=== PATIENT | male | born 1965 | race Caucasian/White ===

== ENCOUNTER → 2017-03-09 | Outpatient (CLI) | payer BC ==
[2017-03-03 15:43] VITALS: BMI 25.1
[2017-03-09 10:59] VITALS: BP 121/78; PULSE 87; RESP 16; TEMP 98.3
--- NOTE | 2017-03-09 11:23 | P.CONS ---
History of Present Illness - Reason for Consult Consult date: 03/09/17 - Chief Complaint Back pain - History of Present Illness This is a 51-year-old male with long-standing history of lower back pain with worsening of this pain over the last 5 years. The pain goes across the lower back and down the right leg to the right knee. The patient also has pain in his right knee since he injured it a few years ago and had surgery for it. The pain gets worse by standing and by doing any prolonged activities however it does not wake the patient up at night. The patient also denies any weight loss or any bowel or bladder dysfunction. Also there is no numbness or tingling in the lower extremities. The lumbar spine MRI showed severe widespread degenerative disc disease in the lumbar spine with a transitional segment at the L5-S1 level with lumbarization of the S1 vertebra and spondylolisthesis of L5 on S1. 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 He uses Percocet once or twice a week as he states to help with this pain. He does not think that physical therapy would help him because his work is physically demanding already. Past Medical History Past Medical History: COPD, Osteoarthritis (OA), Skin Disorder, Thyroid Disorder Additional Past Medical History / Comment(s): fx ribs , fx toe left foot currently-recent fall, psoriasis, History of Any Multi-Drug Resistant Organisms: None Reported Additional Past Surgical History / Comment(s): Nail removed from rt knee, Past Anesthesia/Blood Transfusion Reactions: No Reported Reaction Past Psychological History: Anxiety, Depression Smoking Status: Current every day smoker Past Alcohol Use History: Occasional Additional Past Alcohol Use History / Comment(s): smokes up to 2 PPD, for 25 yrs Past Drug Use History: None Reported - Past Family History Brother(s) Family Medical History: Cancer Medications and Allergies Home Medications Medication Instructions Recorded Confirmed Type ALPRAZolam [Xanax] 2 mg PO HS PRN 03/03/17 03/09/17 History Escitalopram [Lexapro] 10 mg PO DAILY 03/03/17 03/09/17 History Ibuprofen 400 mg PO Q8HR PRN 03/03/17 03/09/17 History Levothyroxine Sodium [Synthroid] 125 mcg PO DAILY 03/03/17 03/09/17 History oxyCODONE-APAP 10-325MG [Percocet 1 tab PO Q6HR PRN 03/03/17 03/09/17 History 10-325 mg] Allergies Allergy/AdvReac Type Severity Reaction Status Date / Time No Known Allergies Allergy Verified 03/09/17 10:42 Physical Exam Vitals: Vital Signs Temp Pulse Resp BP 03/09/17 10:45 98.3 F 87 16 121/78 Patient is alert oriented 3 in no apparent distress. Neuro exam of the lower extremities showed normal muscle strength and normal knee reflexes bilaterally absent ankle reflexes bilaterally. Straight leg raising test negative bilaterally. He has tenderness in the lumbar paravertebral area bilaterally. He has no sacroiliac joint tenderness. Facet loading test is positive on both sides. Normal range of motion of the lumbar spine with more pain with flexion than with extension. Assessment and Plan Plan: This is a 51-year-old male with lumbar degenerative disc disease and mostly axial lower back pain with occasional radiation to the right knee. The patient denies any paresthesia in the lower extremities. He has no lateralizing neurological symptoms or signs. Patient can benefit from getting lumbar medial branch block under fluoroscopic guidance and if it does work for him then we can plan on doing radiofrequency ablation in the near future. The patient is slightly hesitant about getting any injections done on his back pain is going to think about this procedure and check with his primary care physician before he gets back to us.
== END ==
LOC: PNWHC3 10:33
PROVIDERS: ATTEND Anesthesiology
DX: M51.36 Other intervertebral disc degeneration, lumbar region (principal); J44.9 Chronic obstructive pulmonary disease, unspecified; M25.50 Pain in unspecified joint; E07.9 Disorder of thyroid, unspecified; F41.9 Anxiety disorder, unspecified; F32.9 Major depressive disorder, single episode, unspecified; F17.200 Nicotine dependence, unspecified, uncomplicated; Z79.899 Other long term (current) drug therapy
CPT/HCPCS: 99211

== ENCOUNTER 2017-04-02 07:32 | Day surgery (SDC) | payer BC ==
[2017-03-31 15:27] VITALS: BMI 25.1
[~2017-04-02 07:32] MED LIST: LACTATED RINGERS 1,000 ML IV SCH
[2017-04-02 07:49] VITALS: TEMP 98.2
[2017-04-02] MEDS ORDERED: LIDOCAINE 1% 20 ML VIAL (10MG/ML) FOR IV START INTRADERMA ONE (07:55)
[2017-04-02] MEDS ORDERED: IV FLUID CONTINUATION 1,000 ML IV ONE (08:48)
--- NOTE | 2017-04-02 08:53 | P.PCN ---
Date of Procedure: 04/02/17 Surgeon: Josiah Wise Pathology: none sent Condition: stable Disposition: PACU Description of Procedure: PREOPERATIVE DIAGNOSIS: L3-L4, L4-L5, and L5-S1 spondylosis without myelopathy and facet arthropathy. POSTOPERATIVE DIAGNOSIS: L3-L4, L4-L5, and L5-S1 spondylosis without myelopathy and facet arthropathy. PROCEDURE DESCRIPTION: Patient presents for L3-L4, L4-L5 and L5-S1 diagnostic medial branch blocks under fluoroscopic guidance. The procedure is performed using fluoroscopic guidance during needle placement to assure proper position and maximize safety. ANESTHESIA: Local with 1% lidocaine; conscious sedation EBL: Minimal PROCEDURE INDICATION: Patient with lumbar facet arthropathy signs and symptoms, here for diagnostic medial branch block after failing conservative treatment. Pt does not take any blood thinning medications. MBB #1 at this visit. PROCEDURE DESCRIPTION: The patient was seen and identified in the preoperative area. Risks, benefits, complications, and alternatives were discussed with the patient (including but not limited to incomplete pain relief, bleeding, infection, nerve damage, and allergies to medications), the patient agreed to proceed with the procedure and signed the consent after all questions were answered. Patient was taken to the OR and time out was completed to verify proper patient, position, laterality of pain, and allergies. Pt was placed in the prone position and a pillow was placed under the abdomen to reduce lumbar lordosis. The lumbosacral area was prepped and draped in the usual sterile fashion. Using oblique fluoroscopy, the eye of the "Joaquin dog" of right L4 vertebral body, which corresponds to the path of the medial branch originating from the level above, which is L3 in this case, was identified. Subsequently, a 22-gauge 3.5-inch spinal needle was inserted under fluoroscopic guidance toward the eye of the "Joaquin dog" of the right L4 vertebral body, corresponding to the junction of the superior articular process and the transverse process of the pedicle of the same level. After needle tip confirmation on lateral view and after negative aspiration for CSF and blood and without paresthesias, 1 mL of a 6 ml solution of 0.5% preservative-free bupivacaine and 40 mg Kenalog was injected. Subsequently the needle was withdrawn intact and the same procedure was repeated for the right L4, right L5, left L3, left L4, and left L5 medial branches which together with right L3 medial branch correspond to the sensory innervation of the bilateral L3-L4, L4-L5, and L5-S1 facet joints. Needle was withdrawn intact after each injection. At the end of the procedure, the skin was cleansed and bandages were applied. COMPLICATIONS: None. DISPOSITION/PLAN: The patient taken to the recovery area after the procedure in a stable condition for observation. Patient was reexamined prior to discharge and there were no issues and hea larea. Patient was discharged home, accompanied by an adult, after meeting discharged criteria. Discharge instructions were give to the patient by the staff. Patient was specifically instructed not to drive today and to rest for the rest of the day. Patient will follow up for second diagnostic LMBB in 4-6 weeks.
[2017-04-02 08:54] VITALS: PULSE 60
[2017-04-02 08:57] VITALS: BP 133/86; RESP 16
--- NOTE | 2017-04-02 09:01 | FL ---
EXAMINATION TYPE: FL guided pain mgmt statistic DATE OF EXAM: 04/02/2017 CLINICAL HISTORY: Low back pain. TECHNIQUE: Fluoroscopy. COMPARISON: None. FINDINGS: Fluoroscopic guidance was provided during pain relief procedure performed by Dr. Wise . A total of 23 seconds of fluoroscopic time was utilized during the procedure and 6 spot images are ac quired. Images acquired shows needle localization at multiple levels in the lower lumbar spine. IMPRESSION: As Above.
== END 2017-04-02 09:16 | disposition home or self-care (01) ==
LOC: ORPAIN 07:32
PROVIDERS: ATTEND Anesthesiology
DX: M47.816 Spondylosis without myelopathy or radiculopathy, lumbar region (principal); M47.817 Spondylosis without myelopathy or radiculopathy, lumbosacral region; M46.96 Unspecified inflammatory spondylopathy, lumbar region; M46.97 Unspecified inflammatory spondylopathy, lumbosacral region; J44.9 Chronic obstructive pulmonary disease, unspecified; M19.90 Unspecified osteoarthritis, unspecified site; E07.9 Disorder of thyroid, unspecified; F41.9 Anxiety disorder, unspecified; F32.9 Major depressive disorder, single episode, unspecified; Z87.891 Personal history of nicotine dependence; Z79.899 Other long term (current) drug therapy
CPT/HCPCS: 64493; 64494; 64495; 99152; J2250; J3301

== ENCOUNTER 2017-05-27 08:40 | Day surgery (SDC) | payer BC ==
[2017-05-25 09:22] VITALS: BMI 25.1
[2017-05-27 09:16] VITALS: RESP 16; TEMP 98
--- NOTE | 2017-05-27 10:24 | P.PCN ---
Date of Procedure: 05/27/17 Procedure(s) Performed: PREOPERATIVE DIAGNOSIS: 1-Lumbar Spondylosis with Facet Arthropathy without myelopathy. 2- Lumber degenerative disc disease. POSTOPERATIVE DIAGNOSIS: 1- Lumbar Spondylosis with Facet Arthropathy without myelopathy. 2- Lumber degenerative disc disease. PROCEDURES : Left Radiofrequency thermocoagulation, L3-L4, L4-L5, and L5-S1 medial branch, with fluoroscopic guidance ANESTHESIA: IV sedation with versed 2 mg and fentaneyl 100 mcg and local infiltration with lidocaine 1% 6 ml EBL: Minimal PROCEDURE INDICATION: The patient with low back pain secondary to lumbar facet arthropathy who had more than 50% relief of her pain with previous diagnostic lumbar medial branch block with bupivacaine. PROCEDURE DESCRIPTION / TECHNIQUE: The patient was seen and identified in the preoperative area. Risks, benefits, complications, including but not limited to risk of infection ,bleeding , allergic reactions to the medications and no complete pain releife , and alternatives were discussed with the patient, the patient agreed to proceed with the procedure and signed the consent. IV was started. Vital signs remained stable throughout the procedure. Patient was taken to the OR and time out was completed. The patient was placed in the prone position on the procedure table. The lumber area was prepped and draped in the usual sterile fashion. . Vital signs were closely monitored during the procedure .IV sedation was used during the procedure to decrease patients anxiety. Using AP and then oblique fluoroscopy, the ``eye of the Joaquin dog corresponding to the connection between the superior and transverse articular processes of left L3, L4, and L5 were identified, marked, and localized with 1 % lidocaine. Subsequently, a [id number] radiofrequency cannula with a 10- mm active tip was advanced guided by fluoroscopy to each of the ``eyes of the Joaquin dog at left L3, L4, and L5. Each site then underwent sensory testing at 50 Hz and 0 to 1 volt and motor testing at 2.5 Hz and 0 to 3 volt with local stimulation, but no radicular symptoms down the legs. Thereafter the left L3-4, L4-5, and L5-S1 sites underwent radiofrequency thermocoagulation at 80 degrees celsius for 90 seconds after injecting 0.5 ml of PF lidocaine 1%. then After the thermocoagulation done , 1 ml of the block solution containing Kenalog 40 mg and 3 ml of marain 0.5% was injected at the left L3-4 , L4- 5 , and L5-S1, levels after negative aspiration of CSF and blood and with no paresthesias. Cannulas were retracted while injecting lidocaine 1% until the needle is out. At the end of the procedure, the skin was cleansed and bandages were applied. COMPLICATIONS: No acute complications. DISPOSITION / PLANS: The patient was placed in a supine position and transferred to the recovery area in a stable condition for observation and was discharged from the recovery room after meeting discharge criteria. Home discharge instructions given to the patient by the staff. The patient was reexamined prior to discharge. The patient will schedule a follow up in the clinic in 2-4 weeks.
--- NOTE | 2017-05-27 10:38 | FL ---
EXAMINATION TYPE: FL guided pain mgmt statistic DATE OF EXAM: 05/27/2017 COMPARISON: NONE HISTORY: Back pain TECHNIQUE: Fluoroscopy. FINDINGS/IMPRESSION: Fluoroscopic guidance was provided during procedure performed by Dr. Tang. A total of 5 seconds of fluoroscopic time was utilized during the procedure and 4 spot images was ac quired demonstrating intraoperative images marking multiple lumbar vertebral levels.
[2017-05-27 10:53] VITALS: BP 119/82; PULSE 67
[2017-05-27] MEDS ORDERED: IV FLUID CONTINUATION 1,000 ML IV ONE (10:55)
== END 2017-05-27 11:06 | disposition home or self-care (01) ==
LOC: ORPAIN 08:40
PROVIDERS: ATTEND Specialist
DX: M51.36 Other intervertebral disc degeneration, lumbar region (principal); M47.816 Spondylosis without myelopathy or radiculopathy, lumbar region; M46.96 Unspecified inflammatory spondylopathy, lumbar region; E03.9 Hypothyroidism, unspecified
CPT/HCPCS: 64635; 64636 ×2; J2250; J3301; J3010; 99152; 99153

== ENCOUNTER 2017-08-03 06:28 | Day surgery (SDC) | payer OTHER ==
[2017-07-28 13:35] VITALS: BMI 25.1
[2017-08-03 06:43] VITALS: RESP 18; TEMP 98.4
[2017-08-03] MEDS ORDERED: LIDOCAINE 1% 20 ML VIAL (10MG/ML) FOR IV START INTRADERMA ONE (06:53)
--- NOTE | 2017-08-03 07:25 | P.PCN ---
Date of Procedure: 08/03/17 Procedure(s) Performed: Preoperative diagnoses= 1-lumbar spondylosis and lumbar facet arthropathy. 2- bilateral sacroiliac joint dysfunction. 3-lumbar degenerative disc disease Postoperative diagnoses= same as preoperative diagnosis. Procedure= Bilateral sacroiliac joint steroid injection under fluoroscopic guidance. Anesthesia= moderate sedation with Versed 2 mg and fentanyl 50 micrograms and local infiltration with lidocaine 1% 4 ml Estimated blood loss=minimal. Procedure indication= the patient had a history of severe chronic low back pain , diagnosed with sacroiliac joint dysfunctions, and lumbar sacral facet arthropathy unresponsive to conservative treatment. Procedure description= the patient was seen and identified in the preoperative holding area, risks and benefits and alternative of the procedure and possible complications discussed with the patient, and he agreed with the preceding, patient signed the consent, an IV was started, and vital signs were monitored and were stable throughout the procedure, patient was placed in the prone position or table and the lumbosacral area was prepped and draped with a sterile fashion, vital signs were closely monitored during the procedure, the fluoroscopy camera was placed in the contralateral oblique view on the right sacroiliac joint and the lower part of the joint was identified, local infiltration of the skin and subcutaneous tissue with lidocaine 1% 2 mL then a 22-gauge Quincke-type spinal needle advanced slowly under fluoroscopy and placed in the posterior and inferior border of the right sacroiliac joint, placement confirmed with AP and lateral view, and after appropriate needle placement confirmed and after negative aspiration for heme and CSF and there was no paresthesia during the injection, 3 ml of Marcaine 0.5% and 40 mg of Kenalog injected after negative aspiration, the needle removed, and the entire same procedure was repeated for the left sacroiliac joint Patient tolerated the procedure well without any complication, The patient returned to supine position after the back was cleaned and a Band- Aid applied, the patient transported to recovery room in stable condition and he was monitored for 30 minutes before he was discharged home and then patient was reexamined before going home and patient was discharged in stable condition and patient will follow up with the pain clinic in a few weeks
[2017-08-03] MEDS ORDERED: IV FLUID CONTINUATION 1,000 ML IV ONE (07:30)
[2017-08-03 07:48] VITALS: BP 122/72; PULSE 63
--- NOTE | 2017-08-03 08:39 | FL ---
EXAMINATION TYPE: FL guided pain mgmt statistic DATE OF EXAM: 08/03/2017 FLUOROSCOPY Fluoroscopy time of 7 seconds was used during bilateral SI joint injections. 2 image/s document/s th e procedure.
== END 2017-08-03 08:09 | disposition home or self-care (01) ==
LOC: ORPAIN 06:28
PROVIDERS: ATTEND Specialist
DX: G89.29 Other chronic pain (principal); M53.3 Sacrococcygeal disorders, not elsewhere classified; M47.816 Spondylosis without myelopathy or radiculopathy, lumbar region; M51.36 Other intervertebral disc degeneration, lumbar region; F41.9 Anxiety disorder, unspecified; E03.9 Hypothyroidism, unspecified; Z72.0 Tobacco use
CPT/HCPCS: J2250; J3301; J3010; G0260

== ENCOUNTER 2017-08-18 06:29 | Day surgery (SDC) | payer OTHER ==
[2017-08-11 12:06] VITALS: BMI 24.3
[2017-08-18] MEDS ORDERED: LACTATED RINGERS 1,000 ML IV ONE (07:08)
[2017-08-18 07:09] VITALS: TEMP 98.2
[2017-08-18] MEDS ORDERED: LACTATED RINGERS 1,000 ML IV SCH (07:30)
--- NOTE | 2017-08-18 07:31 | P.PCN ---
Date of Procedure: 08/18/17 Surgeon: Josiah Wise Pathology: none sent Condition: stable Disposition: PACU Description of Procedure: PREOPERATIVE DIAGNOSIS: 1-Bilateral sacroiliitis. 2 Lumbar DDD POSTOPERATIVE DIAGNOSIS:. 1-Bilateral sacroiliitis. 2 Lumbar DDD PROCEDURES: Bilateral Sacroiliac joint steroid injection with fluoroscopic guidance ANESTHESIA: Local with 1% lidocaine; conscious sedation EBL: Minimal. PROCEDURE INDICATIONS: This patient with a history of low back pain secondary to sacroiliitis and lumbar DDD unresponsive to conservative management. No use of blood thinners. Two weeks' relief from first procedure. PROCEDURE DESCRIPTION: The patient was seen and identified in the preoperative area. Risks, benefits, complications, and alternatives were discussed with the patient (including but not limited to incomplete pain relief, bleeding, infection, nerve damage, and allergies to medications), the patient agreed to proceed with the procedure and signed the consent after all questions were answered. Patient was taken to the OR and time out was completed to verify proper patient , position, laterality of pain, and allergies. Pt was placed in the prone position and a pillow was placed under the abdomen to reduce lumbar lordosis. The lumbosacral area was prepped and draped in the usual sterile fashion. Critical pause was taken. Vital signs were closely monitored during the procedure. The fluoroscopic camera was placed in contralateral oblique view and right sacroiliiac joint lower pole was identified. After local infiltration with 1% lidocaine 2 ml, Subsequently, a 22-gauge 3.5 inch spinal needle was introduced into the posteroinferior aspect of the right sacroiliac joint under direct fluoroscopic visualization. Subsequently, 3 ml of a solution of a total of 6 ml solution containing total 5 mL of 0.5% preservative-free bupivicaine mixed with 40 mg of Kenalog was injected after negative aspiration for CSF, blood, and air and negative for paresthesia. The entire procedure was repeated on the left side as above. Needle was withdrawn intact. Skin was cleansed, and bandages were applied. COMPLICATIONS: None. COMMENTS: DISPOSITION / PLANS: The patient was placed in a supine position and transferred to the recovery area in a stable condition for observation and was discharged from the recovery room after meeting discharge criteria. Home discharge instructions given to the patient by the staff. The patient was reexamined prior to discharge. The patient will schedule a follow up in clinic in 2-4 weeks.
[2017-08-18 07:39] VITALS: RESP 20
--- NOTE | 2017-08-18 07:40 | FL ---
EXAMINATION TYPE: FL guided pain mgmt statistic DATE OF EXAM: 08/18/2017 CLINICAL HISTORY: Low back and SI joint pain. TECHNIQUE: Fluoroscopy. COMPARISON: None. FINDINGS: Fluoroscopic guidance was provided during pain relief procedure performed by Dr. Wise. A total of 8 seconds of fluoroscopic time was utilized during the procedure and 4 spot images are acqu ired. Images acquired shows needle localization at level of bilateral sacroiliac joints. IMPRESSION: As Above.
[2017-08-18 07:58] VITALS: BP 131/85; PULSE 57
[2017-08-18] MEDS ORDERED: IV FLUID CONTINUATION 1,000 ML IV ONE (07:59)
== END 2017-08-18 08:04 | disposition home or self-care (01) ==
LOC: ORPAIN 06:29
PROVIDERS: ATTEND Anesthesiology
DX: M46.1 Sacroiliitis, not elsewhere classified (principal); M51.36 Other intervertebral disc degeneration, lumbar region; M47.816 Spondylosis without myelopathy or radiculopathy, lumbar region; F41.9 Anxiety disorder, unspecified; E03.9 Hypothyroidism, unspecified; F17.210 Nicotine dependence, cigarettes, uncomplicated
CPT/HCPCS: J2250; J3301; Q9965; J3010; G0260

== ENCOUNTER → 2017-09-14 | Outpatient (CLI) | payer OTHER ==
[2017-09-14 14:46] VITALS: BP 136/88; PULSE 73; RESP 16
--- NOTE | 2017-09-14 15:27 | P.PN ---
Subjective Progress Note Date: 09/14/17 The this is 51 years old male with a history of severe low back pain diagnosed with lumbar spondylosis and sacroiliitis, we have done radiofrequency ablation of the medial branch lumbar area, and he had good results later on he continued to have severe bilateral buttock pain and we did bilateral sacroiliac joint steroid injections, he had more than 50% improvement in his low back pain , and he is here today to discuss the results of the injection and discuss the next step He continued to use Percocet 10/325 and he is getting prescription refills from his primary. He denies any side effects of the medication he denies any excessive drowsiness and sleepiness, he denies any motor or sensory deficits Objective - Vital Signs Vital signs: Vital Signs Temp Pulse 73 09/14/17 14:40 Resp 16 09/14/17 14:40 BP 136/88 09/14/17 14:40 Pulse Ox 97 09/14/17 14:40 Intake & Output 09/13/17 09/14/17 09/14/17 18:59 06:59 18:59 Weight 79.379 kg - Exam Physical Examinations : 1-Constitutiona : Cooperative , not in acute distress . 2-HEENT : nech ; supple , no Lymphadenopathy , normal thyroid size . eyes : no ptosis , no icterus, no photophobia . ENT : normal of hearing , normal oropharynx , no Thrush . 3- Respiratory : Chest clear to auscultations Bilaterally , no wheezing , no Rhonchi . 4- Cardiovascular : regular rate and rhythem , S1 , S2 , no S3 , no S4. 5- Gastrointestinal : abdomen soft no tenderness , bowel sounds positive all four quadrents , no organomegally . 6- Genitourinary : Defferred . 7- neurologic : Cranial nerve II to XII intact , no focal neurological deffecit . 8-psychatric : alert , oriented X 3 , appropriate affect , intact judgment and insight . 9-Lymphatic : no Lymphadenopathy . 10- musculoskeltal : , Lumber spine = normal moter stegnth lower extremities ,thigh and legs .5/5 deep tendon reflexes : normal Knee Jerk , normal ankle Jerk . lumber facet Loading Test positive strait leg raising test negative bilaterally Fabere test negative bilaterally Sever tenderness over the Sacroiliac joint on the Right , and Left side Assessment and Plan Plan: Assessment and plan= Low back pain secondary to lumbar spondylosis with lumbar facet arthropathy with unfamiliar proceeding and sacroiliitis Patient had a good result after the sacroiliac joint injection 2 he will be good candidate for radiofrequency ablation of the sacroiliac joint RFA of the L5-S1 dorsal ramus and RFA of the lateral branches of S1/S2/S3, procedure risk and benefits and alternatives discussed with the patient he agreed with proceeding Also patient given prescription to have functional capacity evaluation test Time with Patient: Less than 30
== END | disposition home or self-care (01) ==
LOC: PNWHC3 13:45
PROVIDERS: ATTEND Specialist
DX: M47.816 Spondylosis without myelopathy or radiculopathy, lumbar region (principal); M46.96 Unspecified inflammatory spondylopathy, lumbar region; M46.1 Sacroiliitis, not elsewhere classified; Z79.891 Long term (current) use of opiate analgesic
CPT/HCPCS: 99211

== ENCOUNTER 2017-10-13 08:20 | Day surgery (SDC) | payer OTHER ==
[2017-10-09 11:34] VITALS: BMI 24.3
[2017-10-13 09:25] VITALS: RESP 16; TEMP 97.8
[2017-10-13] MEDS ORDERED: LACTATED RINGERS 1,000 ML IV ONE (09:26)
[2017-10-13 09:30] LABS: Glucose,Whole Blood 97 mg/dL (75-99)
--- NOTE | 2017-10-13 09:58 | P.PCN ---
Date of Procedure: 10/13/17 Surgeon: Josiah Wise Pathology: none sent Condition: stable Disposition: PACU Description of Procedure: PREOPERATIVE DIAGNOSIS: Sacroiliitis; lumbar spondylosis without myelopathy POSTOPERATIVE DIAGNOSIS: Sacroiliitis; lumbar spondylosis without myelopathy PROCEDURE: Radiofrequency thermocoagulation/ablation of the Medial branch of L5 and S1, S2, S3 lateral branch levels under fluoroscopic guidance, right ANESTHESIA: Local with 1% lidocaine; IV sedation with Versed/fentanyl EBL: Minimal PROCEDURE INDICATION: The patient with low back pain secondary to sacroilitis with marked decrease in pain with prior sacroiliac joint injections. No use of blood thinners. PROCEDURE DESCRIPTION: The patient was seen and identified in the preoperative area. Risks, benefits, complications, and alternatives were discussed with the patient, with risks including but not limited to bleeding, infection, nerve damage, incomplete pain relief, and allergic reactions to medications. The patient agreed to proceed with the procedure and signed the informed consent after all questions were answered. IV was started. Vital signs were stable throughout the procedure. Patient was taken to the OR and time out was completed.The patient was placed in the prone position on procedure table and a pillow was placed under the abdomen to reduce lumbar lordosis. The lumbosacral area was prepped and draped in the usual sterile fashion. Critical pause was taken. Vital signs were closely monitored during the procedure. L5 Medial Branch: Using right oblique fluoroscopy, the junction of the transverse process and the superior articular process of the top of the sacrum on the right side, which correspond to the fluoroscopic image of the "eye of the Joaquin dog" was identified. Skin and deeper tissues were localized with 1% lidocaine at the identified level. Then using fluoroscopy, a 10-cm 20-gauge radiofrequency cannula with a 10-mm active tip was was advanced under fluoroscopic guidance until contact was made with periosteum. At this level, the Sensory testing of L5 Medial branch was performed at 50 Hz and 0 to 1 volt with production of concordant pain. Motor stimulation was done at 2 Hz with stimulation of multifidus muscle contraction at (0.1-2.5) volts. No radicular symptoms or paresthesias were produced during the testing. Subsequently, the L5 medial branch was subjected to a radiofrequency ablation at a mode of 90 seconds at 80 degrees Celsius after negative motor and sensory testing as indicated and after injecting 0.5 ml of preservative free Lidocaine 1%. Then after the radiofrequency procedure was done, 1 mL of a solution containing 4 mL of 0.5% preservative-free lidocaine mixed with 40 mg of Kenalog. S1, S2, and S3 Medial branches: Using the oblique position, the right sacroiliac joint was identified. Skin and deeper tissues corresponding to the site were anesthetized with 1% lidocaine. Under fluoroscopic guidance, a total of three 10-cm 18-gauge radiofrequency cannula with 10-mm active tips were advanced to the lateral aspects of the S1, S2, and S3 vertebral foramina. Subsequently, sensory and motor testings were performed at a total of 3 segments at 50 Hz and 2 Hz respectively which produced concordant pain without radiculopathy or paresthesia. Then each segment was subjected to radiofrequency ablation at a mode of 90 seconds at 80 degrees Celsius for a total of 3 lesions with the bipolar technique. Then after the radiofrequency procedure was done, each site was injected with 1 mL of the aforementioned solution containing 3 mL of 1% preservative-free lidocaine mixed with 40 mg of Kenalog. The needles were withdrawn. Area was cleaned. Band-Aid was applied. COMPLICATIONS: None. COMMENTS: DISPOSITION / PLANS: The patient was placed in a supine position and transferred to the recovery area in a stable condition for observation and was discharged from the recovery room after meeting discharge criteria. Home discharge instructions given to the patient by the staff. The patient was reexamined prior to discharge. The patient will schedule a follow up for left SI RFA in 4-6 weeks.
[2017-10-13] MEDS ORDERED: LACTATED RINGERS 1,000 ML IV SCH (10:00)
[2017-10-13] MEDS ORDERED: IV FLUID CONTINUATION 1,000 ML IV ONE (10:22)
[2017-10-13 10:47] VITALS: BP 131/78; PULSE 90
--- NOTE | 2017-10-13 11:38 | FL ---
Fluoroscopy HISTORY: Pain 8 seconds fluoroscopy time supplied to the referring clinician. 3 intraoperative C-arm images docume nt the procedure. See dictated report from anesthesia.
== END 2017-10-13 10:55 | disposition home or self-care (01) ==
LOC: ORPAIN 08:20
PROVIDERS: ATTEND Anesthesiology
DX: M47.816 Spondylosis without myelopathy or radiculopathy, lumbar region (principal); M46.1 Sacroiliitis, not elsewhere classified
CPT/HCPCS: 64635; 64640 ×3; J2250; J3301; J3010; 99152

== ENCOUNTER 2017-11-12 07:12 | Day surgery (SDC) | payer OTHER ==
[2017-11-09 17:50] VITALS: BMI 24.3
[2017-11-12] MEDS ORDERED: LACTATED RINGERS 1,000 ML IV SCH (07:30)
[2017-11-12 07:48] VITALS: TEMP 98.6
--- NOTE | 2017-11-12 08:43 | P.PCN ---
Date of Procedure: 11/12/17 Surgeon: Julia Uribe Description of Procedure: PREOPERATIVE DIAGNOSIS: Sacroiliitis; lumbar spondylosis without myelopathy POSTOPERATIVE DIAGNOSIS: Sacroiliitis; lumbar spondylosis without myelopathy PROCEDURE: Radiofrequency thermocoagulation/ablation of the Medial branch of L5 and S1, S2 lateral branch levels under fluoroscopic guidance, left ANESTHESIA: Local with 1% lidocaine; IV sedation with Versed/fentanyl EBL: Minimal PROCEDURE INDICATION: The patient with low back pain secondary to sacroilitis with marked decrease in pain with prior sacroiliac joint injections. No use of blood thinners. PROCEDURE DESCRIPTION: The patient was seen and identified in the preoperative area. Risks, benefits, complications, and alternatives were discussed with the patient, with risks including but not limited to bleeding, infection, nerve damage, incomplete pain relief, and allergic reactions to medications. The patient agreed to proceed with the procedure and signed the informed consent after all questions were answered. IV was started. Vital signs were stable throughout the procedure. Patient was taken to the OR and time out was completed.The patient was placed in the prone position on procedure table and a pillow was placed under the abdomen to reduce lumbar lordosis. The lumbosacral area was prepped and draped in the usual sterile fashion. Critical pause was taken. Vital signs were closely monitored during the procedure. L5 Medial Branch: Using left oblique fluoroscopy, the junction of the transverse process and the superior articular process of the top of the sacrum on the left side, which correspond to the fluoroscopic image of the "eye of the Joaquin dog" was identified. Skin and deeper tissues were localized with 1% lidocaine at the identified level. Then using fluoroscopy, a 10-cm, 18-gauge radiofrequency cannula with a 10-mm active tip was was advanced under fluoroscopic guidance until contact was made with periosteum. Motor stimulation was done at 2 Hz with stimulation of multifidus muscle contraction at (0.1-2.5) volts. No radicular symptoms or paresthesias were produced during the testing. Subsequently, the L5 medial branch was subjected to a radiofrequency ablation at a mode of 90 seconds at 80 degrees Celsius after negative motor testing. Before the radiofrequency procedure was done, 1 mL of a solution containing 4 mL of 0.5% preservative-free lidocaine mixed with 40 mg of Kenalog. S1, S2, and S3 Medial branches: Using the oblique position, the left sacroiliac joint was identified. Skin and deeper tissues corresponding to the site were anesthetized with 1% lidocaine. Under fluoroscopic guidance, a total of three 10-cm 18-gauge radiofrequency cannula with 10-mm active tips were advanced to the lateral aspects of the S1, and S2 vertebral foramina. Subsequently, motor testings were performed at a total of 2 segments at 50 Hz and 2 Hz which produced no radiculopathy or paresthesia. Then each segment was subjected to radiofrequency ablation at a mode of 90 seconds at 80 degrees Celsius for a total of 2 lesions with the bipolar technique. Then after the radiofrequency procedure was done. The needles were withdrawn. Area was cleaned. Band-Aid was applied. COMPLICATIONS: None. COMMENTS: DISPOSITION / PLANS: The patient was placed in a supine position and transferred to the recovery area in a stable condition for observation and was discharged from the recovery room after meeting discharge criteria. Home discharge instructions given to the patient by the staff. The patient was reexamined prior to discharge.
[2017-11-12] MEDS ORDERED: IV FLUID CONTINUATION 1,000 ML IV ONE (08:45)
[2017-11-12 09:00] VITALS: BP 120/78; PULSE 67; RESP 16
--- NOTE | 2017-11-12 09:01 | FL ---
EXAMINATION TYPE: FL guided pain mgmt statistic DATE OF EXAM: 11/12/2017 COMPARISON: NONE HISTORY: Sacral and back pain TECHNIQUE: Fluoroscopy. FINDINGS/IMPRESSION: Fluoroscopic guidance was provided during procedure performed by Dr. Uribe. A total of 13 seconds of fluoroscopic time was utilized during the procedure and 2 spot images was ac quired demonstrating multilevel localization over the sacrum.
--- NOTE | 2017-11-17 08:53 | CDI ---
Date: 11/17/17 CDS/Weight Caller Name: Tita Mccoy Phone: If any questions, call Kae Hatfield Residential Case Manager at [phone] Patient Name: Joao Rosales Admit Date: 11/12/17 Discharge Date: 11/12/17 ATTENTION: The [facility] Coding Staff appreciate your assistance in clarifying documentation. Please respond to the clarification below the line at the bottom and electronically sign. The [facility] Coding staff will review the response and follow-up if needed. Please note: Queries are made part of the Legal Health Record. If you have any questions, please contact the Residential Case Manager. Dear Dr. Uribe, Please provide clarification as to the type of sedation provided patient. Please clarify if it the sedation provided was moderate/conscious sedation or unconscious sedation. Operative report documents only that IV Versed/Fentanyl were given. On the Pain Procedure Record under Anesthesia Plan, there is nothing checked Thank you for your kind consideration MTDD
== END 2017-11-12 09:15 | disposition home or self-care (01) ==
LOC: ORPAIN 07:12
PROVIDERS: ATTEND Anesthesiology
DX: M46.1 Sacroiliitis, not elsewhere classified (principal); M47.816 Spondylosis without myelopathy or radiculopathy, lumbar region
CPT/HCPCS: 64640 ×2; 64635; J2250; J3301; J3010; 64636; 99152; 99153

== ENCOUNTER → 2017-12-16 | Outpatient (CLI) | payer OTHER ==
--- NOTE | 2017-12-16 12:25 | MR ---
EXAMINATION TYPE: MR lumbar spine wo con DATE OF EXAM: 12/16/2017 COMPARISON: 05/22/2015 HISTORY: Low back pain, spinal stenosis, love hip pain TECHNIQUE: Multiplanar, multisequence images of the lumbar spine were acquired. FINDINGS: Again there appears to be a transitional lumbar segment with partial lumbarization of S1 an d rudimentary S1-S2 disc. Again radiographic correlation is recommended prior to surgical interventio n. There is grade 1 anterolisthesis of L5 on S1. Vertebral body height loss thought to predominantly be as a result of extensive degenerative disc disease and Schmorl's node formation is seen of the L4 rene tebral body without bone marrow edema. Modic type II degenerative endplate changes are seen in additi on to multiple other Schmorl's nodes. There is an S-shaped scoliotic curvature of the thoracolumbar s pine, levoconvex of the lumbar spine. L1-L2: There is disc desiccation, a broad-based disc bulge, and minimal facet arthropathy without spi nal canal stenosis or neural foraminal narrowing. L2-L3: There is a broad-based disc bulge, facet arthropathy and ligament of flavum buckling without s jamil canal stenosis or neural foraminal narrowing. L3-L4: There is a right lateral disc herniation with extent into the neural foramen creating moderate to severe right neural foraminal stenosis. Findings are superimposed upon a broad-based disc bulge w ith facet arthropathy that together create mild left neural foraminal narrowing and mild spinal canal stenosis. L4-L5: There is a right lateral disc herniation with extent into the neural foramen creating moderate right neural foraminal narrowing. Facet arthropathy and ligamentum flavum buckling are seen creating mild left neural foraminal narrowing and mild spinal canal stenosis. L5-S1: There is annular tear and a broad-based disc bulge as well as left lateral disc herniation. Th is contamination with facet hypertrophy and marked ligamentum flavum buckling create severe spinal ca nal stenosis, severe left neural foraminal narrowing and mild right neural foraminal narrowing. IMPRESSION: 1. Progression of degenerative disc disease in comparison to the prior exam of 05/22/2015. 2. Right lateral disc herniation at L3-L4 that in combination with degenerative changes create modera te to severe right neural foraminal narrowing, mild left neural foraminal narrowing and mild spinal c anal stenosis. 3. Right lateral disc herniation with extent into the neural foramen creating moderate right neurofor aminal narrowing at L4-L5 as well as mild left neural foraminal narrowing and mild spinal canal steno sis. 4. Left lateral disc herniation at L5-S1 examination with degenerative changes create severe spinal c anal stenosis, severe left neural foraminal narrowing and mild right neuroforaminal narrowing. 5. S-shaped scoliosis of the thoracolumbar spine. 6. Persistent grade 1 anterolisthesis of L4 on L5. 7. Slight vertebral body height loss of L4 without bone marrow edema. This is likely on a degenerativ e basis from a large Schmorl's node of the superior endplate.
--- NOTE | 2017-12-17 19:26 | MR ---
EXAMINATION TYPE: MR hips BILAT wo con DATE OF EXAM: 12/16/2017 COMPARISON: NONE HISTORY: Low back pain, spinal stenosis, love hip pain TECHNIQUE: Multiplanar, multisequence images of the hips were acquired. FINDINGS: The femoral heads maintain a rounded morphology. There is no MR evidence of avascular necro sis or subchondral collapse. No focal bone marrow edema is seen. No T1 hypointense fracture line. The re is moderate bilateral femoral acetabular arthropathy with small acetabular osteophytes, small femo ral head osteophytes, acetabular sclerosis and joint space narrowing that is symmetric in degree. Deg enerative changes of the lumbar spine are discussed on the lumbar spine radiograph of the same date. The labrum is intact given the limitation of this nonarthrographic study on the left. There is suspic ion for a small displaced anterior superior labral tear on the right on sagittal PD image 13 through 15. Additionally on the right there is a small amount of fluid in the greater trochanteric bursa. Min imal increased signal on the left is seen within the gluteus светлана at its insertion on the left gre ater trochanter. Sacroiliac joints are symmetric with minimal bilateral degenerative sclerosis. IMPRESSION: 1. No evidence of femoral head fracture, avascular necrosis, subchondral collapse, or bone marrow elza ma to indicate fracture. 2. Moderate bilateral femoral acetabular arthropathy. 3. Suspicion for anterior superior right small displaced labral tear. 4. Mild right greater trochanteric bursitis. 5. Mild left gluteus светлана insertional tendinopathy.
== END | disposition home or self-care (01) ==
LOC: RADMRIMAIN 09:47
PROVIDERS: ATTEND Family Medicine
DX: M16.0 Bilateral primary osteoarthritis of hip (principal); M70.61 Trochanteric bursitis, right hip; M67.854 Other specified disorders of tendon, left hip; M48.061 Spinal stenosis, lumbar region without neurogenic claudication; M99.73 Connective tissue and disc stenosis of intervertebral foramina of lumbar region; M51.27 Other intervertebral disc displacement, lumbosacral region; M51.36 Other intervertebral disc degeneration, lumbar region; M43.16 Spondylolisthesis, lumbar region
CPT/HCPCS: 72148

== ENCOUNTER → 2017-12-24 | Outpatient (CLI) | payer OTHER ==
[2017-12-24 14:52] VITALS: BP 145/94; PULSE 88; RESP 18
--- NOTE | 2017-12-24 14:52 | P.PN ---
Progress Note - Text Progress Note Date: 12/24/17 Patient returns for followup for chronic back pain with radiation to hips. Patient recently underwent bilateral SI RFA, which provided some relief of his low back pain and hip pain in the interval since procedures, but the pain in his lumbar spine has returned. Patient continues on no regular opioid medications for pain Patient denies adverse drug effects from medications. Today, pt denies new-onset weakness, bowel/bladder incontinence, or any other signs or symptoms of cauda equina syndrome. There are no signs of acute intoxication, and no indications of medication diversion or overuse. In addition to above, 13-point review of systems is also negative for chest pain , shortness of breath, changes in vision, changes in hearing, new onset weakness , abdominal pain, diarrhea, extreme fatigue, malaise, fever, skin changes, homicidal or suicidal ideation, or bowel or bladder incontinence. Vital Signs: Reviewed in EMR Gen: WDWN, AAOx3, NAD HEENT: NCAT, EOMI, hearing grossly normal Pulm: resp unlabored Abd: soft, NT, ND Neck: supple, trachea midline ROM in flexion lumbar spine: reduced ROM in extension lumbar spine: reduced Lumbar paravertebral tenderness: + Facet loading: + bilateral SI joint tenderness: + R > L Morris's test: + R > L Straight leg raise: +RLE at 5 degrees Imaging: Reviewed in EMR Assessment: 1. lumbar spondylosis 2. SIJ dysfunction 3. chronic pain syndrome Plan: 1. Explanation: Opioid and psychological risk scores were reviewed. Diagnoses , prognoses, and multiple treatment options including but not limited to physical therapy, interventional therapies, adjuvant medical therapies, narcotic medication therapies, and surgery were discussed with the patient and all questions were answered to the patient's satisfaction. 2. Opioid agreement: Patient has previously signed narcotic agreement, and was orally counseled to not overuse, abuse, divert, or cell medications, and to take them as prescribed by only 1 healthcare provider. The patient was also counseled to store opioid medications in a safe and preferably locked location. Patient was also counseled against driving or operating heavy equipment while using narcotic medications and also to not use alcohol or any illicit or recreational drugs. The patient verbalized understanding that lack of compliance with any of the above and likely result in failure to renew narcotic prescriptions, possible discharge from the clinic, and possible legal ramifications thereafter if indicated. 3. Counseling: The patient was counseled extensively on BODY MASS INDEX, EXERCISE. Specifically, the patient was instructed regarding the importance of weight control, and exercise in the context of both chronic pain and overall health. 4. Procedures: LESI L5-S1 x 1 for now prior to patient's disability hearing 5. Consultations: None 6. Investigations: None 7. Medications: none prescribed 8. Disposition: f/u for procedure as scheduled PQRS measures: 1-Patient's medications are documented in the chart. 2-Tobacco use is positive 3-Patient has not had a pneumococcal vaccine. 4-Advanced care planning discussed, patient unable to give. 5-Opioid contract NOT signed with the patient. 6-Pain positive, follow-up visit or procedure scheduled 7-Patient's blood pressure measured and documented, and patient will follow up with the primary care due to hypertension. 8-Patient's weight was measured, and body mass index within the normal limits 9-Patient WAS NOT identified as an unhealthy alcohol user.
== END | disposition home or self-care (01) ==
LOC: PNWHC3 14:31
PROVIDERS: ATTEND Anesthesiology
DX: G89.4 Chronic pain syndrome (principal); M54.5 Low back pain; M47.816 Spondylosis without myelopathy or radiculopathy, lumbar region; M53.88 Other specified dorsopathies, sacral and sacrococcygeal region; F17.200 Nicotine dependence, unspecified, uncomplicated; Z79.891 Long term (current) use of opiate analgesic
CPT/HCPCS: 99211

== ENCOUNTER 2018-01-18 07:26 | Day surgery (SDC) | payer OTHER ==
[2018-01-13 15:03] VITALS: BMI 26.1
[2018-01-18 08:28] VITALS: RESP 16; TEMP 97.8
[2018-01-18] MEDS ORDERED: LACTATED RINGERS 1,000 ML IV ONE (08:28)
[2018-01-18 08:41] LABS: Glucose,Whole Blood 101 mg/dL (75-99)
--- NOTE | 2018-01-18 09:06 | P.PCN ---
Date of Procedure: 01/18/18 Procedure(s) Performed: PREOPERATIVE DIAGNOSIS: 1- Lumbar Degenerative Disc Diseases 2-Lumbar spondylosis with Facet arthropathy without myelopathy. 3-sacroiliac joint dysfunction. POSTOPERATIVE DIAGNOSIS: 1-Lumber Degenerative Disc Diseases 2-Lumbar spondylosis with Facet arthropathy without myelopathy. 3-sacroiliac joint dysfunction PROCEDURE 1. Lumbar epidural steroid injection under fluoroscopic guidance at the L5-S1 level. 2. Lumbar epidurogram. ANESTHESIA: Local with 1% lidocaine 3 ml and , moderate sedation with intravenous Versed 2 mg ,and fentanyle 50 Mcg EBL: Minimal PROCEDURE INDICATION: The patient with low back pain and radiculitis symptoms unresponsive to conservative treatment. Fluoroscopy was used to optimize visualization of the needle placement and to maximize safety. PROCEDURE DESCRIPTION / TECHNIQUE: The patient was seen and identified in the preoperative area. Risks, benefits , complications including but not limited to infections ,bleeding ,allergic reaction to the medications ,nerve damage and not complete pain releife , and alternatives were discussed with the patient. The patient agreed to proceed with the procedure and signed the consent. IV was started, and vital signs were stable. Patient was taken to the OR and time out was completed. The patient was placed in the prone position on procedure table and a pillow was placed under the abdomen to reduce lumbar lordosis. The lumbosacral area was prepped and draped in the usual sterile fashion.ere closely monitored during the procedure. Conscious sedation was used during the procedure to decrease patients anxiety. Vital signs was monitered during the entire procedure. Using anterior-posterior fluoroscopy, the L5-S1 interlaminar space was identified and the skin over this site was marked and then infiltrated with 1% lidocaine subcutaneously. Subsequently, a 20-gauge Tuohy epidural needle was inserted and advanced toward the epidural space using the ``Loss of resistance technique and guided by AP and lateral fluoroscopy. The correct needle position in the epidural space was verified with the injection of 2 mL of the water soluble contrast dye Isovue 200 contrast and observing an excellent epidurogram with the epidural spread of the dye, after negative aspiration for blood and CSF and in the absence of paresthesias. Again after negative aspiration, a 6 ml mixture containing 80 mg Depo-Medrol, and 2 ml of preservative free Normal Saline, and 2 ml of preservative free lidocaine 1% solution was injected and a washout of epidurogram was seen. Needle was withdrawn intact, skin was cleansed, and bandages were applied. COMPLICATIONS: None DISPOSITION / PLANS: The patient was placed in a supine position and transferred to the recovery area in a stable condition for observation. There was no evidence of lower extremity motor or sensory deficit after the procedure. Patient was discharged from the recovery room after meeting discharge criteria. Home discharge instructions were given to the patient by the staff. The patient was reexamined prior to discharge. The patient will schedule a follow up in the clinic in 2-4 weeks.
[2018-01-18] MEDS ORDERED: IV FLUID CONTINUATION 1,000 ML IV ONE (09:11)
[2018-01-18 09:29] VITALS: BP 134/84; PULSE 62
--- NOTE | 2018-01-18 10:48 | FL ---
EXAMINATION TYPE: FL guided pain mgmt statistic DATE OF EXAM: 01/18/2018 FLUOROSCOPY Fluoroscopy time of 2 seconds was used during lumbar epidural injection. 1 image/s document/s the pr tiffanie.
[2018-01-18] MEDS ORDERED: LACTATED RINGERS 1,000 ML IV SCH (11:15)
== END 2018-01-18 09:42 | disposition home or self-care (01) ==
LOC: ORPAIN 07:26
PROVIDERS: ATTEND Specialist
DX: M51.16 Intervertebral disc disorders with radiculopathy, lumbar region (principal); M47.26 Other spondylosis with radiculopathy, lumbar region; M53.3 Sacrococcygeal disorders, not elsewhere classified
CPT/HCPCS: 62323; J2250; J1030; J3010; Q9966

== ENCOUNTER → 2018-02-15 | Outpatient (CLI) | payer OTHER ==
[2018-02-15 13:57] VITALS: BP 131/92; PULSE 83; RESP 18; TEMP 98.3
--- NOTE | 2018-02-15 14:52 | P.PN ---
Subjective Progress Note Date: 02/15/18 This is a 52-year-old male with history of chronic lower back pain due to lumbar spondylosis and degenerative disc disease. The patient's pain did not respond to the last lumbar epidural steroid injection. He still feels the pain in the lower back area. He denies any bowel or bladder dysfunction or any progressive weakness in the lower extremities. The patient had multiple injections previously with only temporary relief of pain. The patient had seen a surgeon who recommended lumbar fusion if he gets any increasing weakness in the lower extremities. In addition to above, 13-point review of systems is also negative for chest pain , shortness of breath, changes in vision, changes in hearing, new onset weakness , abdominal pain, diarrhea, extreme fatigue, malaise, fever, skin changes, homicidal or suicidal ideation, or bowel or bladder incontinence. Vital Signs: Reviewed in EMR Gen: WDWN, AAOx3, NAD HEENT: NCAT, EOMI, hearing grossly normal Pulm: resp unlabored Neck: supple, trachea midline ROM in flexion lumbar spine: reduced ROM in extension lumbar spine: reduced Lumbar paravertebral tenderness: + Facet loading: + bilateral Neuro exam of the lower extremities within normal limits Imaging: Reviewed in EMR Assessment: 1. lumbar spondylosis 2. SIJ dysfunction 3. chronic pain syndrome 4.DDD Plan: 1. Explanation: Opioid and psychological risk scores were reviewed. Diagnoses , prognoses, and multiple treatment options including but not limited to physical therapy, interventional therapies, adjuvant medical therapies, narcotic medication therapies, and surgery were discussed with the patient and all questions were answered to the patient's satisfaction. 2. Opioid agreement: Patient has previously signed narcotic agreement, and was orally counseled to not overuse, abuse, divert, or cell medications, and to take them as prescribed by only 1 healthcare provider. The patient was also counseled to store opioid medications in a safe and preferably locked location. Patient was also counseled against driving or operating heavy equipment while using narcotic medications and also to not use alcohol or any illicit or recreational drugs. The patient verbalized understanding that lack of compliance with any of the above and likely result in failure to renew narcotic prescriptions, possible discharge from the clinic, and possible legal ramifications thereafter if indicated. 3. Counseling: The patient was counseled extensively on BODY MASS INDEX, EXERCISE. Specifically, the patient was instructed regarding the importance of weight control, and exercise in the context of both chronic pain and overall health. 4. Procedures: None 5. Consultations: None 6. Investigations: None 7. Medications: Zanaflex 4 mg one by mouth daily at bedtime 8. Disposition: Return to clinic on an as-needed basis Objective - Vital Signs Vital signs: Vital Signs Temp 98.3 F 02/15/18 13:49 Pulse 83 02/15/18 13:49 Resp 18 02/15/18 13:49 BP 131/92 02/15/18 13:49 Pulse Ox 99 02/15/18 13:49 Intake & Output 02/14/18 02/15/18 02/15/18 18:59 06:59 18:59 Weight 81.647 kg
== END | disposition home or self-care (01) ==
LOC: PNWHC3 13:33
PROVIDERS: ATTEND Anesthesiology
DX: G89.4 Chronic pain syndrome (principal); M51.36 Other intervertebral disc degeneration, lumbar region; M47.816 Spondylosis without myelopathy or radiculopathy, lumbar region; M53.3 Sacrococcygeal disorders, not elsewhere classified; Z79.899 Other long term (current) drug therapy
CPT/HCPCS: 99211

== ENCOUNTER → 2018-03-25 | Outpatient (CLI) | payer OTHER ==
[2018-03-25 13:38] VITALS: BP 135/87; PULSE 116; RESP 18
--- NOTE | 2018-03-25 14:11 | P.PN ---
Progress Note - Text Progress Note Date: 03/25/18 Progress Note - Text Mr. wallace presents for follow-up visit today. He was recent seen in the clinic about one month ago. He was started on a muscle relaxant. Patient continues to have low back pain which is pretty much constant throughout the day but better with rest. He says the back pain gets worse with any type of movement. He continues to go to the gym 5 days a week. He continues to do yoga regularly. He feels that he is in good shape but continues to have pain. He did have a lumbar epidural steroid injection but the relief was only transient. As not had any physical therapy or any back surgery. His pain continues to be throughout the back but has a single area of radiculopathy down the right leg which extends down the lateral side of leg into the right kneecap. He denies any lower extremity weakness or numbness or tingling. Otherwise patient is healthy he denies any diabetes high blood pressure cardiac disease or any renal disease. Patient is independent he lives alone cooks and cleans for himself. In addition to above, 13-point review of systems is also negative for chest pain , shortness of breath, changes in vision, changes in hearing, new onset weakness , abdominal pain, diarrhea, extreme fatigue, malaise, fever, skin changes, homicidal or suicidal ideation, or bowel or bladder incontinence. Vital Signs: Reviewed in EMR Gen: WDWN, AAOx3, NAD HEENT: NCAT, EOMI, hearing grossly normal Pulm: resp unlabored Abd: soft, NT, ND Neck: supple, trachea midline TTP lower thoracic spine paravertebral area ROM in flexion lumbar spine: reduced and is very stiff ROM in extension lumbar spine: reduced limited to about 5 Lumbar paravertebral tenderness: + Facet loading: + bilateral Neuro: CN II-XII grossly intact, muscle strength lower extremities PRESERVED Imaging: Reviewed in EMR Assessment: 1. lumbar spondylosis Plan: 1. Explanation: Opioid and psychological risk scores were reviewed. Diagnoses , prognoses, and multiple treatment options including but not limited to physical therapy, interventional therapies, adjuvant medical therapies, narcotic medication therapies, and surgery were discussed with the patient and all questions were answered to the patient's satisfaction. 2. Opioid agreement: 3. Counseling: The patient was counseled extensively on SMOKING CESSATION, BODY MASS INDEX, EXERCISE. Specifically, the patient was instructed regarding the importance of smoking cessation, obesity, and exercise in the context of both chronic pain and overall health. 4. Procedures: None at this time 5. Consultations: We'll send the patient for physical therapy evaluation and treatment I discussed with the patient had this is a long-term plan and will not improve right after the end of the physical therapy. Despite that he has a workout that he does regularly I believe that physical therapy may assist him in strengthening core and improving his posture 6. Investigations: Maps 7. Medications: Recommend the patient to trial anti-inflammatory medications of Mobic 15 mg once per day. I did refill his prescription for 1 more month. I advised him to trial a medication and discontinue if he has any side effects from the medications or let us know 8. Disposition: Advised the patient follow-up with our clinic in 8 weeks' time after his completed physical therapy and trial the mobic PQRS measures: 1-Patient's medications are documented in the chart. 2-Tobacco use is positive, counseling given 3-Patient has not had a pneumococcal vaccine. 4-Advanced care planning discussed, patient unable to give. 5-Opioid contract signed with the patient. 6-Pain positive, follow-up visit or procedure scheduled 7-Patient's blood pressure measured and documented, and WNL. 8-Patient's weight was measured, and body mass index ABOVE the normal limits, and counseling was done. Patient instructed to follow up with PCP. 9-Patient WAS NOT identified as an unhealthy alcohol user.
== END | disposition home or self-care (01) ==
LOC: PNWHC3 13:15
PROVIDERS: ATTEND Hospitalist
DX: M47.26 Other spondylosis with radiculopathy, lumbar region (principal); F17.200 Nicotine dependence, unspecified, uncomplicated; Z71.6 Tobacco abuse counseling
CPT/HCPCS: 99211

== ENCOUNTER → 2018-04-28 | Outpatient (CLI) | payer OTHER ==
--- NOTE | 2018-04-28 12:52 | US ---
EXAMINATION TYPE: US thyroid st tissue head/neck DATE OF EXAM: 04/28/2018 COMPARISON: NONE CLINICAL HISTORY: R22.0 Swelling/Mass Neck. Recent left wisdom tooth was pulled, swelling to left eric e of face at area of mandible, also h/o shingles a few weeks ago FINDINGS: 3 lymph nodes all noted around 2cm in long axis on left side of neck containing normal appearing fatt y sp. Specific lymph node at submandibular gland where swelling is located measured 1.5 x 2.0 x 0.4 cm. No obvious fluid collection or solid components seen otherwise. Portion of parotid gland that was imaged appeared wnl. IMPRESSION: Morphologically normal-appearing left submandibular prominent lymph nodes at the site of swelling, po ssibly reactive.
== END | disposition home or self-care (01) ==
LOC: RADUSWWP 11:55
PROVIDERS: ATTEND Family Medicine
DX: R22.0 Localized swelling, mass and lump, head (principal); K04.7 Periapical abscess without sinus; K11.9 Disease of salivary gland, unspecified
CPT/HCPCS: 76536

== ENCOUNTER → 2018-05-17 | Outpatient (CLI) | payer OTHER ==
--- NOTE | 2018-05-17 09:08 | XR ---
EXAMINATION TYPE: XR chest 2V DATE OF EXAM: 05/17/2018 COMPARISON: December 19, 2014 HISTORY: Shortness of breath TECHNIQUE: Frontal and lateral views of the chest are obtained. FINDINGS: Scattered senescent parenchymal changes noted. Hyperinflation compatible with COPD. No evidence for infiltrate. No evidence for atelectasis. Heart size is stable. Mediastinal structures are stable and grossly unremarkable. No evidence for hilar prominence. Degenerative changes dorsal spine. IMPRESSION: 1. No evidence for acute pulmonary disease.
== END ==
LOC: RADXRMAIN 08:41
PROVIDERS: ATTEND Family Medicine
DX: J44.9 Chronic obstructive pulmonary disease, unspecified (principal)
CPT/HCPCS: 71046

== ENCOUNTER → 2018-06-14 | Outpatient (CLI) | payer OTHER ==
[2018-06-14 12:47] VITALS: BP 141/100; PULSE 91; RESP 16
--- NOTE | 2018-06-15 07:38 | P.PN ---
Subjective Progress Note Date: 06/14/18 This is follow-up visit for this patient with a history of severe and chronic low back pain secondary to lumbar degenerative disc disease, lumbar spondylosis with facet arthropathy, and sacroiliitis We have done an interventional pain procedure , radiofrequency ablation of the medial branch lumber area, radiofrequency ablation of the sacroiliac joint, and lumbar epidural steroid injection Which FAILED to control the pain, patient continued to have severe low back pain , he tried physical therapy without any benefit, he tried TENS unit without any benefit, he tried NSAIDs without any benefit The patient currently on Percocet 5/325 every 6-8 hours when necessary Patient denies any side effect of the medication , patient denies any excessive drowsiness or sleepiness, patient denies any suicidal ideation, Patient reported that the current medication is helping to control the pain and improve the activity of daily livings, Patient denies any motor or sensory deficit, denies any change in the bowel movement or urination, patient denies any fever or night sweats. Objective - Vital Signs Vital signs: Vital Signs Temp Pulse 91 06/14/18 12:42 Resp 16 06/14/18 12:42 BP 141/100 06/14/18 12:42 Pulse Ox 99 06/14/18 12:42 Intake & Output 06/14/18 06/15/18 06/15/18 18:59 06:59 18:59 Weight 83.915 kg - Exam Physical Examinations : 1-Constitutiona : Cooperative , not in acute distress . 2-HEENT : nech ; supple , no Lymphadenopathy , normal thyroid size . eyes : no ptosis , no icterus, no photophobia . ENT : normal of hearing , normal oropharynx , no Thrush . 3- Respiratory : Chest clear to auscultations Bilaterally , no wheezing , no Rhonchi . 4- Cardiovascular : regular rate and rhythem , S1 , S2 , no S3 , no S4. 5- Gastrointestinal : abdomen soft no tenderness , bowel sounds , no organomegally . 6- Genitourinary : Defferred . 7- neurologic : Cranial nerve II to XII intact , no focal neurological deffecit . 8-psychatric : alert , oriented X 3 , appropriate affect , intact judgment and insight . 9-Lymphatic : no Lymphadenopathy . 10- musculoskeltal : Lumber spine moter stegnth lower extremities , thigh and legs 5/5 Right side , 5/5 Left side deep tendon reflexes : normal Knee Jerk , normal ankle Jerk positive lumber facet Loading Test Range of motion of the lumbar spine Flexion 30 degrees, extension 10 degrees strait leg raising test negative bilaterally Fabere test negative bilaterally Sever tenderness over the Sacroiliac joint on the R and L sides Assessment and Plan Plan: Assessment and plan= chronic severe low back pain secondary to lumbar spondylosis and lumbar facet arthropathy without myelopathy, and sacroiliitis Patient continued to have severe low back pain after all interventional pain management procedure( radiofrequency ablation of the medial branch lumbar area, radiofrequency ablation of the sacroiliac joint, and lumbar epidural steroid injection, he had no benefit from physical therapy, 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
== END | disposition home or self-care (01) ==
LOC: PNWHC3 12:20
PROVIDERS: ATTEND Specialist
DX: G89.29 Other chronic pain (principal); M54.5 Low back pain; M51.36 Other intervertebral disc degeneration, lumbar region; M46.86 Other specified inflammatory spondylopathies, lumbar region; M46.1 Sacroiliitis, not elsewhere classified; Z98.890 Other specified postprocedural states; Z79.891 Long term (current) use of opiate analgesic; Z79.1 Long term (current) use of non-steroidal anti-inflammatories (NSAID)
CPT/HCPCS: 99211

== ENCOUNTER 2019-01-13 14:29 | Emergency (ER) | payer OTHER ==
[2019-01-13 14:35] VITALS: BP 127/86; PULSE 90; RESP 18; TEMP 98.8
--- NOTE | 2019-01-13 15:08 | XR ---
EXAMINATION TYPE: XR lumbar spine 2 or 3V DATE OF EXAM: 01/13/2019 CLINICAL HISTORY: Back pain TECHNIQUE: Frontal, lateral, and oblique images of the lumbar spine are obtained. COMPARISON: MRI dated 12/16/2017 FINDINGS: There is a levoscoliosis of the lumbar spine and transitional vertebrae at S1. Chronic comp ression deformity of the L4 vertebral body is seen with minimal grade 1 anterolisthesis of L5 on S1 u nchanged. Multilevel facet arthropathy and small interosseous heights are also seen with intervertebr al disc space narrowing. No new vertebral body height loss or malalignment in comparison to the prior MRI. IMPRESSION: Chronic compression deformity of L4 and unchanged anterolisthesis of L5 on S1 in comparis on to the MR of 12/16/2017. Moderate multilevel degenerative disc disease of the lumbar spine. No new compression deformity.
--- NOTE | 2019-01-13 15:09 | XR ---
EXAMINATION TYPE: XR thoracic spine complete DATE OF EXAM: 01/13/2019 CLINICAL HISTORY: Fall with subsequent back pain TECHNIQUE: Frontal, lateral, and swimmer's view of thoracic spine are obtained. COMPARISON: None. FINDINGS: There is a dextroscoliosis of the thoracolumbar junction and slight levoscoliosis of the up per thoracic spine. Moderate multilevel degenerative disc disease of the visualized cervical spine an d mild multilevel degenerative disc disease of the thoracic spine are noted as intervertebral disc sp honey narrowing and small anterior osteophytes. Thoracic spine show satisfactory alignment without evid ence of acute fracture or dislocation. Vertebral body heights are preserved. Visualized ribs are unr emarkable. IMPRESSION: No acute fracture or malalignment is seen in the thoracic spine.
--- NOTE | 2019-01-13 15:25 | ED ---
General Adult HPI - General Chief complaint: Back Pain/Injury Stated complaint: Back injury Time Seen by Provider: 01/13/19 14:38 Source: patient, RN notes reviewed, old records reviewed Mode of arrival: ambulatory Limitations: no limitations - History of Present Illness Initial comments: 53-year-old male patient with past history of chronic lumbar back pain presents ED after a fall sustained approximately 5 days ago. Patient reports that he was sitting on a barstool when the back to legs of the barstool broke. Patient reports that he fell backwards landing on his lumbar spine region. Patient denies any trauma to head or neck. Patient denies any use of blood thinners. Patient reports that in the past 5 days he has had muscle tightness bilaterally in his lumbar spine region. Patient denies any loss of bowel or bladder control, lower extremity weakness, saddle anesthesia, new onset paresthesias. Patient is ambulatory with some mild discomfort in his paralumbar region bilaterally. Patient states that it feels as if his muscle tightness. Patient denies any other complaints at this time. Systemic: Pt denies fatigue, fever/chills, rash. Pt denies weakness, night sweats, weight loss. Neuro: Pt denies headache, visual disturbances, syncope or pre-syncope. HEENT: Pt denies ocular discharge or irritation, otalgia, rhinorrhea, pharyngit is or notable lymphadenopathy. Cardiopulmonary: Pt denies chest pain, SOB, heart palpitations, dyspnea on exertion. Abdominal/GI: Pt denies abdominal pain, n/v/d. : Pt denies dysuria, burning w/ urination, frequency/urgency. Denies new onset urinary or bowel incontinence. MSK: Pt denies loss of strength or function in extremities. Neuro: Pt denies new onset weakness, paresthesias. - Related Data Home Medications Medication Instructions Recorded Confirmed ALPRAZolam [Xanax] 2 mg PO HS PRN 03/03/17 06/14/18 Escitalopram [Lexapro] 10 mg PO DAILY 03/03/17 06/14/18 Levothyroxine Sodium [Synthroid] 125 mcg PO DAILY 03/03/17 06/14/18 Multivitamins, Thera [Multivitamin 1 tab PO DAILY 07/28/17 06/14/18 (formulary)] Triamcinolone 0.1% Cream [Kenalog 1 applicatio TOPICAL BID PRN 11/09/17 06/14/18 0.1% Cream] oxyCODONE-APAP 5-325MG [Percocet 5 mg PO DIRECTED 03/25/18 06/14/18 5-325 mg] Ibuprofen [Motrin] 600 mg PO Q8HR PRN 06/14/18 06/14/18 Pregabalin [Lyrica] 50 mg PO TID 06/14/18 06/14/18 Previous Rx's Medication Instructions Recorded Cyclobenzaprine [Flexeril] 1 - 2 tab PO TID #20 tablet 01/13/19 Ibuprofen [Motrin] 600 mg PO Q6HR PRN #40 day 01/13/19 Allergies Allergy/AdvReac Type Severity Reaction Status Date / Time No Known Allergies Allergy Verified 06/14/18 12:32 Review of Systems ROS Statement: Those systems with pertinent positive or pertinent negative responses have been documented in the HPI. ROS Other: All systems not noted in ROS Statement are negative. Past Medical History Past Medical History: Musculoskeletal Disorder, Osteoarthritis (OA), Skin Disorder, Thyroid Disorder Additional Past Medical History / Comment(s): Hx of psoriasis, degenerative and herniated discs, scoliosis. History of Any Multi-Drug Resistant Organisms: None Reported Additional Past Surgical History / Comment(s): Nail removed surgically from rt knee, pain clinic procedures. Past Anesthesia/Blood Transfusion Reactions: No Reported Reaction Past Psychological History: Anxiety Smoking Status: Current every day smoker Past Alcohol Use History: Rare Past Drug Use History: None Reported - Past Family History Brother(s) Family Medical History: Cancer Mother Family Medical History: Cancer General Exam - General Exam Comments Initial Comments: Constitutional: NAD, AOX3, Pt has pleasant affect. HEENT: NC/AT, trachea midline, neck supple, no lymphadenopathy. Posterior pharynx non erythematous, without exudates. External ears appear normal, without discharge. Mucous membranes moist. Eyes PERRLA, EOM intact. There is no scleral icterus. No pallor noted. Cardiopulmonary: RRR, no murmurs, rubs or gallops, no JVD noted. Lungs CTAB in anterior and posterior thomas. No peripheral edema. Abdominal exam: Abdomen soft and non-distended. Abdomen non-tender to palpation in all 4 quadrants. Bowel sounds active in LLQ. No hepatosplenomegaly. No ecchymosis Neuro: CN II-XII grossly intact. No nuchal rigidity. No raccon eyes, no mcguire sign, no hemotympanum. No cervical spinal tenderness. MSK: No midline cervical thoracic lumbar tenderness. Mild bilateral paralumbar tenderness. Straight leg raise negative. 5 strength psoas and quadriceps. Ambulatory without difficulty. No posterior calf tenderness bilaterally, homans sign negative bilaterally. Posterior tibialis and radial pulse +2 bilaterally. Sensation intact in upper and lower extremities. Full active ROM in upper and lower extremities, 5/5 stregnth. Limitations: no limitations Course Vital Signs 01/13/19 14:32 Temperature 98.8 F Pulse Rate 90 Respiratory 18 Rate Blood Pressure 127/86 O2 Sat by Pulse 97 Oximetry Medical Decision Making - Medical Decision Making 53-year-old male patient with past history of chronic lumbar back pain presents ED after a fall sustained approximately 5 days ago. Patient reports that he was sitting on a barstool when the back to legs of the barstool broke. Patient reports that he fell backwards landing on his lumbar spine region. Patient denies any trauma to head or neck. Patient denies any use of blood thinners. Patient reports that in the past 5 days he has had muscle tightness bilaterally in his lumbar spine region. Patient denies any loss of bowel or bladder control, lower extremity weakness, saddle anesthesia, new onset paresthesias. Patient is ambulatory with some mild discomfort in his paralumbar region bilaterally. Patient states that it feels as if his muscle tightness. Patient denies any other complaints at this time. Pt VSS, afebrile. Physical exam displayed: No midline cervical thoracic lumbar tenderness. Mild bilateral paralumbar tenderness. Straight leg raise negative. 5 strength psoas and quadriceps. Ambulatory without difficulty. Plain film of lumbar spine displayed chronic compression deformity of L4 and unchanged and unchanged anterolisthesis of L5 on S1 in comparision to prior MR. no new compression deformity. Plain film thoracic spinal display acute process. Patient will be discharged with muscle relaxer, nonsteroidal anti-inflammatory. Patient will follow-up with primary care provider and previously established orthopedic consult for further evaluation in the next 1-2 days. Patient return to ER if condition worsens in any way. Case discussed with Dr. Mcgowan. Disposition Clinical Impression: Fall, Lumbar back sprain Disposition: HOME SELF-CARE Condition: Stable Instructions (If sedation given, give patient instructions): Acute Low Back Pain (ED) Additional Instructions: Patient to adhere to previously discussed treatment plan and will take medication(s) as directed. Patient to follow up with PCP in 1-2 days. Patient to return to ED if symptoms do not improve. Take medication as directed. Follow up with primary care provider as well as previously established orthopedic surgeon in next 1-2 days. Return to ER if condition worsens. Prescriptions: Cyclobenzaprine [Flexeril] 1 - 2 tab PO TID #20 tablet Ibuprofen [Motrin] 600 mg PO Q6HR PRN #40 day PRN Reason: Pain Is patient prescribed a controlled substance at d/c from ED?: No Referrals: Joao Cobb DO [Primary Care Provider] - 1-2 days
--- NOTE | 2019-01-13 15:33 | ED ---
Disposition Clinical Impression: Fall, Lumbar back sprain Disposition: HOME SELF-CARE Condition: Stable Instructions (If sedation given, give patient instructions): Acute Low Back Pain (ED) Additional Instructions: Patient to adhere to previously discussed treatment plan and will take medication(s) as directed. Patient to follow up with PCP in 1-2 days. Patient to return to ED if symptoms do not improve. Take medication as directed. Follow up with primary care provider as well as previously established orthopedic surgeon in next 1-2 days. If unable to follow up additional consult provided. Return to ER if condition worsens. Prescriptions: Cyclobenzaprine [Flexeril] 1 - 2 tab PO TID #20 tablet Ibuprofen [Motrin] 600 mg PO Q6HR PRN #40 day PRN Reason: Pain Is patient prescribed a controlled substance at d/c from ED?: No Referrals: Joao Cobb DO [Primary Care Provider] - 1-2 days José Bradley DO [Family Provider] - 1-2 days
== END 2019-01-13 15:53 | disposition home or self-care (01) ==
LOC: EC 14:29
DX: S33.5XXA Sprain of ligaments of lumbar spine, initial encounter (principal); M19.90 Unspecified osteoarthritis, unspecified site; E07.9 Disorder of thyroid, unspecified; F41.9 Anxiety disorder, unspecified; F17.200 Nicotine dependence, unspecified, uncomplicated; Z87.2 Personal history of diseases of the skin and subcutaneous tissue; Z79.890 Hormone replacement therapy; Z79.891 Long term (current) use of opiate analgesic; Z79.899 Other long term (current) drug therapy; W08.XXXA Fall from other furniture, initial encounter
CPT/HCPCS: 72072; 72100; 99284

== ENCOUNTER 2022-10-06 14:17 | Emergency (ER) | payer MEDICARE ==
[2022-10-06 14:36] VITALS: RESP 18; TEMP 99.6
--- NOTE | 2022-10-06 14:42 | ED ---
Nausea/Vomiting/Diarrhea HPI - General Source: patient, RN notes reviewed Mode of arrival: ambulatory Limitations: no limitations - History of Present Illness MD complaint: nausea Onset/Timin -: days(s) <Odessa Hyde - Last Filed: 10/06/22 14:40> <London Enrique - Last Filed: 10/06/22 17:58> - General Chief complaint: Nausea/Vomiting/Diarrhea Stated complaint: nausea Time Seen by Provider: 10/06/22 14:40 - History of Present Illness Initial comments: This is a 57-year-old male who presents to the emergency department for nausea. Patient states that this started yesterday. He has no associated vomiting. Denies any changes in bowel or urinary habits. States that he's also had an elevated temperature. Denies any sick contacts. (Odessa Hyde) - Related Data Home Medications Medication Instructions Recorded Confirmed Levothyroxine Sodium [Synthroid] 125 mcg PO DAILY 03/03/17 10/06/22 Baclofen [Lioresal] 10 mg PO BID PRN 10/06/22 10/06/22 Escitalopram [Lexapro] 20 mg PO PC-LUNCH 10/06/22 10/06/22 Omeprazole [PriLOSEC] 40 mg PO Q2D 10/06/22 10/06/22 oxyCODONE HCL/ACETAMINOPHEN 1 tab PO TID 10/06/22 10/06/22 [Percocet 10-325 mg] traZODone HCL [Desyrel] 100 mg PO HS PRN 10/06/22 10/06/22 Previous Rx's Medication Instructions Recorded Ondansetron Odt [Zofran Odt] 8 mg PO Q8HR PRN #12 tab 10/06/22 Allergies Allergy/AdvReac Type Severity Reaction Status Date / Time No Known Allergies Allergy Verified 10/06/22 17:47 Review of Systems ROS Other: All systems not noted in ROS Statement are negative. <Odessa Hyde - Last Filed: 10/06/22 14:40> ROS Other: All systems not noted in ROS Statement are negative. <London Enrique - Last Filed: 10/06/22 17:58> ROS Statement: Those systems with pertinent positive or pertinent negative responses have been documented in the HPI. Past Medical History Past Medical History: Musculoskeletal Disorder, Osteoarthritis (OA), Skin Disorder, Thyroid Disorder Additional Past Medical History / Comment(s): Hx of psoriasis, degenerative and herniated discs, scoliosis. History of Any Multi-Drug Resistant Organisms: None Reported Additional Past Surgical History / Comment(s): Nail removed surgically from rt knee, pain clinic procedures. Past Anesthesia/Blood Transfusion Reactions: No Reported Reaction Past Psychological History: Anxiety Smoking Status: Current every day smoker Past Alcohol Use History: Rare Past Drug Use History: None Reported - Past Family History Brother(s) Family Medical History: Cancer Mother Family Medical History: Cancer <Odessa Hyde - Last Filed: 10/06/22 14:40> General Exam Limitations: no limitations <Odessa Hyde - Last Filed: 10/06/22 14:40> - General Exam Comments Initial Comments: Visual Physical Exam Vital signs reviewed General: Well-appearing, nontoxic, no acute distress. Head: Normocephalic, atraumatic Eyes: PERRLA, EOMI ENT: Airway patent Chest: Nonlabored breathing Skin: No visual rash, normal skin tone Neuro: Alert and oriented 3 Musculoskeletal: No gross abnormalities (Odessa Hyde) Course Vital Signs 10/06/22 14:33 Temperature 99.6 F Pulse Rate 103 H Respiratory 18 Rate Blood Pressure 137/87 O2 Sat by Pulse 97 Oximetry Medical Decision Making - Lab Data Result diagrams: 10/06/22 16:15 10/06/22 16:15 <London Enrique - Last Filed: 10/06/22 17:58> - Lab Data Lab Results 10/06/22 10/06/22 10/06/22 Range/Units 16:15 16:15 16:15 WBC 10.3 (3.8-10.6) k/uL RBC 5.09 (4.30-5.90) m/uL Hgb 16.3 (13.0-17.5) gm/dL Hct 46.9 (39.0-53.0) % MCV 92.0 (80.0-100.0) fL MCH 32.0 (25.0-35.0) pg MCHC 34.7 (31.0-37.0) g/dL RDW 13.0 (11.5-15.5) % Plt Count 269 (150-450) k/uL MPV 8.2 Neutrophils % 61 % Lymphocytes % 30 % Monocytes % 4 % Eosinophils % 2 % Basophils % 1 % Neutrophils # 6.3 (1.3-7.7) k/uL Lymphocytes # 3.1 (1.0-4.8) k/uL Monocytes # 0.4 (0-1.0) k/uL Eosinophils # 0.2 (0-0.7) k/uL Basophils # 0.1 (0-0.2) k/uL Sodium 138 (137-145) mmol/L Potassium 4.1 (3.5-5.1) mmol/L Chloride 104 (98-107) mmol/L Carbon Dioxide 25 (22-30) mmol/L Anion Gap 9 mmol/L BUN 8 L (9-20) mg/dL Creatinine 0.73 (0.66-1.25) mg/dL Est GFR (CKD-EPI)AfAm >90 (>60 ml/min/1.73 sqM) Est GFR (CKD-EPI)NonAf >90 (>60 ml/min/1.73 sqM) Glucose 114 H (74-99) mg/dL Calcium 9.4 (8.4-10.2) mg/dL Total Bilirubin 0.6 (0.2-1.3) mg/dL AST 28 (17-59) U/L ALT 43 (4-49) U/L Alkaline Phosphatase 139 H (38-126) U/L Total Protein 8.1 (6.3-8.2) g/dL Albumin 4.8 (3.5-5.0) g/dL Amylase 45 (30-110) U/L Lipase 33 (23-300) U/L Urine Color Yellow Urine Appearance Clear (Clear) Urine pH 5.5 (5.0-8.0) Ur Specific [place] 1.013 (1.001-1.035) Urine Protein Trace H (Negative) Urine Glucose (UA) Negative (Negative) Urine Ketones Negative (Negative) Urine Blood Negative (Negative) Urine Nitrite Negative (Negative) Urine Bilirubin Negative (Negative) Urine Urobilinogen <2.0 (<2.0) mg/dL Ur Leukocyte Esterase Trace H (Negative) Urine RBC 1 (0-5) /hpf Urine WBC 3 (0-5) /hpf Ur Squamous Epith Cells 1 (0-4) /hpf Urine Bacteria Rare H (None) /hpf Urine Mucus Many H (None) /hpf Influenza Type A (PCR) (Not Detectd) Influenza Type B (PCR) (Not Detectd) RSV (PCR) (Not Detectd) SARS-CoV-2 (PCR) (Not Detectd) 10/06/22 Range/Units 16:15 WBC (3.8-10.6) k/uL RBC (4.30-5.90) m/uL Hgb (13.0-17.5) gm/dL Hct (39.0-53.0) % MCV (80.0-100.0) fL MCH (25.0-35.0) pg MCHC (31.0-37.0) g/dL RDW (11.5-15.5) % Plt Count (150-450) k/uL MPV Neutrophils % % Lymphocytes % % Monocytes % % Eosinophils % % Basophils % % Neutrophils # (1.3-7.7) k/uL Lymphocytes # (1.0-4.8) k/uL Monocytes # (0-1.0) k/uL Eosinophils # (0-0.7) k/uL Basophils # (0-0.2) k/uL Sodium (137-145) mmol/L Potassium (3.5-5.1) mmol/L Chloride (98-107) mmol/L Carbon Dioxide (22-30) mmol/L Anion Gap mmol/L BUN (9-20) mg/dL Creatinine (0.66-1.25) mg/dL Est GFR (CKD-EPI)AfAm (>60 ml/min/1.73 sqM) Est GFR (CKD-EPI)NonAf (>60 ml/min/1.73 sqM) Glucose (74-99) mg/dL Calcium (8.4-10.2) mg/dL Total Bilirubin (0.2-1.3) mg/dL AST (17-59) U/L ALT (4-49) U/L Alkaline Phosphatase (38-126) U/L Total Protein (6.3-8.2) g/dL Albumin (3.5-5.0) g/dL Amylase (30-110) U/L Lipase (23-300) U/L Urine Color Urine Appearance (Clear) Urine pH (5.0-8.0) Ur Specific [place] (1.001-1.035) Urine Protein (Negative) Urine Glucose (UA) (Negative) Urine Ketones (Negative) Urine Blood (Negative) Urine Nitrite (Negative) Urine Bilirubin (Negative) Urine Urobilinogen (<2.0) mg/dL Ur Leukocyte Esterase (Negative) Urine RBC (0-5) /hpf Urine WBC (0-5) /hpf Ur Squamous Epith Cells (0-4) /hpf Urine Bacteria (None) /hpf Urine Mucus (None) /hpf Influenza Type A (PCR) Not Detected (Not Detectd) Influenza Type B (PCR) Not Detected (Not Detectd) RSV (PCR) Not Detected (Not Detectd) SARS-CoV-2 (PCR) Not Detected (Not Detectd) Disposition <Odessa Hyde - Last Filed: 10/06/22 14:40> Is patient prescribed a controlled substance at d/c from ED?: No Time of Disposition: 17:58 <London Enrique - Last Filed: 10/06/22 17:58> Clinical Impression: Dehydration, Nausea, Viral gastroenteritis Disposition: HOME SELF-CARE Condition: Good Instructions (If sedation given, give patient instructions): Acute Nausea and Vomiting (ED), Gastroenteritis (ED) Prescriptions: Ondansetron Odt [Zofran Odt] 8 mg PO Q8HR PRN #12 tab PRN Reason: Nausea Referrals: Joao Cobb DO [Primary Care Provider] - 1-2 days
[2022-10-06] MEDS ORDERED: METOCLOPRAMIDE 5 MG/ML 2 ML VIAL IVP STA (16:11)
[2022-10-06] MEDS ORDERED: SODIUM CHLORIDE 0.9% 1,000 ML IV STA ×2 (16:11)
[2022-10-06 16:38] LABS: Basophils # (A) 0.1 k/uL (0-0.2); Basophils % (A) 1 %; Eosinophils # (A) 0.2 k/uL (0-0.7); Eosinophils % (A) 2 %; HCT 46.9 % (39.0-53.0); HGB 16.3 gm/dL (13.0-17.5); Lymphocytes # (A) 3.1 k/uL (1.0-4.8); Lymphocytes % (A) 30 %; MCHC 34.7 g/dL (31.0-37.0); Mean Platelet Volume 8.2; Monocytes # (A) 0.4 k/uL (0-1.0); Monocytes % (A) 4 %; Neutrophils # (A) 6.3 k/uL (1.3-7.7); Neutrophils % (A) 61 %; Platelet Count 269 k/uL (150-450); RBC 5.09 m/uL (4.30-5.90); WBC 10.3 k/uL (3.8-10.6)
[2022-10-06 16:48] LABS: ALT 43 U/L (4-49); AST 28 U/L (17-59); African American GFR (CKD) >90 (>60 ml/min/1.73 sqM); Albumin 4.8 g/dL (3.5-5.0); Alkaline Phosphatase 139 U/L (38-126); Anion Gap 9 mmol/L; Blood Urea Nitrogen 8 mg/dL (9-20); Calcium 9.4 mg/dL (8.4-10.2); Carbon Dioxide 25 mmol/L (22-30); Chloride 104 mmol/L (98-107); Glucose 114 mg/dL (74-99); Lipase 33 U/L (23-300); Non-African American GFR(CKD) >90 (>60 ml/min/1.73 sqM); Sodium 138 mmol/L (137-145); Total Bilirubin 0.6 mg/dL (0.2-1.3); Total Protein 8.1 g/dL (6.3-8.2)
[2022-10-06 17:15] LABS: Appearance,Urine Clear (Clear); Bacteria,Urine Rare /hpf; Bilirubin,Urine Negative (Negative); Blood,Urine Negative (Negative); Color,Urine Yellow; Glucose,Urine (UA) Negative (Negative); Ketones,Urine Negative (Negative); Leukocyte Esterase,Urine Trace (Negative); Mucus,Urine Many /hpf; Nitrite,Urine Negative (Negative); PH, Urine 5.5 (5.0-8.0); Protein,Urine Trace (Negative); RBC,Urine 1 /hpf (0-5); Specific Gravity,Urine 1.013 (1.001-1.035); Squamous Epithelial Cell,Urine 1 /hpf (0-4); Urobilinogen,Urine <2.0 mg/dL (<2.0); WBC,Urine 3 /hpf (0-5)
[2022-10-06 17:21] LABS: Amylase 45 U/L (30-110); Potassium 4.1 mmol/L (3.5-5.1)
[2022-10-06 18:12] VITALS: BP 135/99; PULSE 78
--- NOTE | 2022-10-06 23:36 | ED ---
Nausea/Vomiting/Diarrhea HPI - General Chief complaint: Nausea/Vomiting/Diarrhea Stated complaint: nausea Time Seen by Provider: 10/06/22 14:40 Source: patient, RN notes reviewed Mode of arrival: ambulatory Limitations: no limitations - History of Present Illness Initial comments: This 57-year-old male presents with a complaint of nausea. He states that this started approximately 36 hours ago. He denies any actual vomiting. He's had occasional loose stools. He states that he has developed some diffuse myalgias and chills at times. He denies any known sick contacts. He did not have any definite fevers. There is no abdominal pain. No other complaints or modifying factors. MD complaint: nausea - Related Data Home Medications Medication Instructions Recorded Confirmed Levothyroxine Sodium [Synthroid] 125 mcg PO DAILY 03/03/17 10/06/22 Baclofen [Lioresal] 10 mg PO BID PRN 10/06/22 10/06/22 Escitalopram [Lexapro] 20 mg PO PC-LUNCH 10/06/22 10/06/22 Omeprazole [PriLOSEC] 40 mg PO Q2D 10/06/22 10/06/22 oxyCODONE HCL/ACETAMINOPHEN 1 tab PO TID 10/06/22 10/06/22 [Percocet 10-325 mg] traZODone HCL [Desyrel] 100 mg PO HS PRN 10/06/22 10/06/22 Previous Rx's Medication Instructions Recorded Ondansetron Odt [Zofran Odt] 8 mg PO Q8HR PRN #12 tab 10/06/22 Allergies Allergy/AdvReac Type Severity Reaction Status Date / Time No Known Allergies Allergy Verified 10/06/22 17:47 Review of Systems ROS Statement: Those systems with pertinent positive or pertinent negative responses have been documented in the HPI. ROS Other: All systems not noted in ROS Statement are negative. Past Medical History Past Medical History: Musculoskeletal Disorder, Osteoarthritis (OA), Skin Disorder, Thyroid Disorder Additional Past Medical History / Comment(s): Hx of psoriasis, degenerative and herniated discs, scoliosis. History of Any Multi-Drug Resistant Organisms: None Reported Additional Past Surgical History / Comment(s): Nail removed surgically from rt knee, pain clinic procedures. Past Anesthesia/Blood Transfusion Reactions: No Reported Reaction Past Psychological History: Anxiety Smoking Status: Current every day smoker Past Alcohol Use History: Rare Past Drug Use History: None Reported - Past Family History Brother(s) Family Medical History: Cancer Mother Family Medical History: Cancer General Exam - General Exam Comments Initial Comments: GENERAL: The patient is well nourished and well hydrated. VITAL SIGNS: Heart rate, blood pressure, respiratory rate reviewed as recorded in nurse's notes. EYES: Pupils are round and reactive. Extraocular movements are intact. No conjunctival / lid redness or swelling. ENT: No external evidence of injury, swelling, or ecchymosis. Airway is patent. Throat is clear. NECK: Nontender. No swelling or evidence of injury. No subcutaneous emphysema. Trachea is midline. No thyroid mass. HEART: Regular rate and rhythm. Good peripheral pulses. LUNGS/CHEST: Breath sounds clear and equal bilaterally. No rales, rhonchi, or wheezes. No ecchymosis, subcutaneous emphysema, or tenderness. ABDOMEN: Abdomen soft without tenderness. No palpable masses or organomegaly. No peritoneal signs. No abdominal wall swelling or ecchymosis. EXTREMITIES: No extremity tenderness. Normal muscle tone and function. No thoracolumbar tenderness. NEUROLOGIC: Sensation is grossly intact. Cranial nerve exam reveals face is symmetrical, tongue is midline, speech is clear. SKIN: No abrasions or ecchymosis is noted. No induration or masses noted. PSYCHIATRIC: Alert and oriented. Appropriate behavior and judgment. . Limitations: no limitations Course Vital Signs 10/06/22 10/06/22 14:33 18:11 Temperature 99.6 F Pulse Rate 103 H 78 Respiratory 18 18 Rate Blood Pressure 137/87 135/99 O2 Sat by Pulse 97 98 Oximetry Medical Decision Making - Medical Decision Making Was pt. sent in by a medical professional or institution (, PA, CLOUD ENGINEER, urgent care, hospital, or correction...) When possible be specific @ -[No] Did you speak to anyone other than the patient for history (EMS, parent, family, police, friend...)? What history was obtained from this source @ -[No] Did you review nursing and triage notes (agree or disagree)? Why? @ -[I reviewed and agree with nursing and triage notes] Were old charts reviewed (outside hosp., previous admission, EMS record, old EKG, old radiological studies, urgent care reports/EKG's, correction records)? Report findings @ -[No old charts were reviewed] Differential Diagnosis (chest pain, altered mental status, abdominal pain women, abdominal pain men, vaginal bleeding, weakness, fever, dyspnea, syncope, headache, dizziness, GI bleed, back pain, seizure, CVA, palpatations, mental health, musculoskeletal)? @ -Viral gastroenteritis, nausea, food poisoning EKG interpreted by me (3pts min.). @ -[As above] X-rays interpreted by me (1pt min.). @ -[None done] CT interpreted by me (1pt min.). @ -[None done] U/S interpreted by me (1pt. min.). @ -[None done] What testing was considered but not performed or refused? (CT, X-rays, U/S, labs)? Why? @ -[None] What meds were considered but not given or refused? Why? @ -[None] Did you discuss the management of the patient with other professionals (professionals i.e. , PA, CLOUD ENGINEER, lab, RT, psych nurse, psychiatric social worker supervisor, hall worker, teacher, financial administration officer, adult protective caseworker)? Give summary @ -[No] Was smoking cessation discussed for >3mins.? @ -[No] Was critical care preformed (if so, how long)? @ -[No] Were there social determinants of health that impacted care today? How? (Consuelo elessness, low income, unemployed, alcoholism, drug addiction, transportation, low edu. Level, literacy, decrease access to med. care, prison, rehab)? @ -[No] Was there de-escalation of care discussed even if they declined (Discuss DNR or withdrawal of care, Hospice)? DNR status @ -[No] What co-morbidities impacted this encounter? (DM, HTN, Smoking, COPD, CAD, Cancer, CVA, ARF, Chemo, Hep., AIDS, mental health diagnosis, sleep apnea, morbid obesity)? @ -[None] Was patient admitted / discharged? Hospital course, mention meds given and route, prescriptions, significant lab abnormalities, going to OR and other pertinent info. @ -The patient was seen and examined. An IV is established and he is hydrated. He receives Zofran intravenously as well as IV fluids and feels much improved on recheck. The laboratories unremarkable. Overall, he likely does have a ga stroenteritis. He states that he feels much better wound like to go home. It is felt as though he stable for discharge. Return parameters are discussed. Diet therapy is discussed. Close follow-up also recommended. Undiagnosed new problem with uncertain prognosis? @ -[No] Drug Therapy requiring intensive monitoring for toxicity (Heparin, Nitro, Insulin, Cardizem)? @ -[No] Were any procedures done? @ -[No] Diagnosis/symptom? @ -Nausea, suspect viral gastroenteritis Acute, or Chronic, or Acute on Chronic? @ -Acute Uncomplicated (without systemic symptoms) or Complicated (systemic symptoms)? @ -Uncomplicated Side effects of treatment? @ -[No] Exacerbation, Progression, or Severe Exacerbation? @ -[No] Poses a threat to life or bodily function? How? (Chest pain, [place], [place], pneumonia, PE, COPD, DKA, ARF, appy, cholecystitis, CVA, Diverticulitis, Homicidal, Suicidal, threat to staff... and all critical care pts) @ -[No] - Lab Data Result diagrams: 10/06/22 16:15 10/06/22 16:15 Lab Results 10/06/22 10/06/22 10/06/22 Range/Units 16:15 16:15 16:15 WBC 10.3 (3.8-10.6) k/uL RBC 5.09 (4.30-5.90) m/uL Hgb 16.3 (13.0-17.5) gm/dL Hct 46.9 (39.0-53.0) % MCV 92.0 (80.0-100.0) fL MCH 32.0 (25.0-35.0) pg MCHC 34.7 (31.0-37.0) g/dL RDW 13.0 (11.5-15.5) % Plt Count 269 (150-450) k/uL MPV 8.2 Neutrophils % 61 % Lymphocytes % 30 % Monocytes % 4 % Eosinophils % 2 % Basophils % 1 % Neutrophils # 6.3 (1.3-7.7) k/uL Lymphocytes # 3.1 (1.0-4.8) k/uL Monocytes # 0.4 (0-1.0) k/uL Eosinophils # 0.2 (0-0.7) k/uL Basophils # 0.1 (0-0.2) k/uL Sodium 138 (137-145) mmol/L Potassium 4.1 (3.5-5.1) mmol/L Chloride 104 (98-107) mmol/L Carbon Dioxide 25 (22-30) mmol/L Anion Gap 9 mmol/L BUN 8 L (9-20) mg/dL Creatinine 0.73 (0.66-1.25) mg/dL Est GFR (CKD-EPI)AfAm >90 (>60 ml/min/1.73 sqM) Est GFR (CKD-EPI)NonAf >90 (>60 ml/min/1.73 sqM) Glucose 114 H (74-99) mg/dL Calcium 9.4 (8.4-10.2) mg/dL Total Bilirubin 0.6 (0.2-1.3) mg/dL AST 28 (17-59) U/L ALT 43 (4-49) U/L Alkaline Phosphatase 139 H (38-126) U/L Total Protein 8.1 (6.3-8.2) g/dL Albumin 4.8 (3.5-5.0) g/dL Amylase 45 (30-110) U/L Lipase 33 (23-300) U/L Urine Color Yellow Urine Appearance Clear (Clear) Urine pH 5.5 (5.0-8.0) Ur Specific [place] 1.013 (1.001-1.035) Urine Protein Trace H (Negative) Urine Glucose (UA) Negative (Negative) Urine Ketones Negative (Negative) Urine Blood Negative (Negative) Urine Nitrite Negative (Negative) Urine Bilirubin Negative (Negative) Urine Urobilinogen <2.0 (<2.0) mg/dL Ur Leukocyte Esterase Trace H (Negative) Urine RBC 1 (0-5) /hpf Urine WBC 3 (0-5) /hpf Ur Squamous Epith Cells 1 (0-4) /hpf Urine Bacteria Rare H (None) /hpf Urine Mucus Many H (None) /hpf Influenza Type A (PCR) (Not Detectd) Influenza Type B (PCR) (Not Detectd) RSV (PCR) (Not Detectd) SARS-CoV-2 (PCR) (Not Detectd) 10/06/22 Range/Units 16:15 WBC (3.8-10.6) k/uL RBC (4.30-5.90) m/uL Hgb (13.0-17.5) gm/dL Hct (39.0-53.0) % MCV (80.0-100.0) fL MCH (25.0-35.0) pg MCHC (31.0-37.0) g/dL RDW (11.5-15.5) % Plt Count (150-450) k/uL MPV Neutrophils % % Lymphocytes % % Monocytes % % Eosinophils % % Basophils % % Neutrophils # (1.3-7.7) k/uL Lymphocytes # (1.0-4.8) k/uL Monocytes # (0-1.0) k/uL Eosinophils # (0-0.7) k/uL Basophils # (0-0.2) k/uL Sodium (137-145) mmol/L Potassium (3.5-5.1) mmol/L Chloride (98-107) mmol/L Carbon Dioxide (22-30) mmol/L Anion Gap mmol/L BUN (9-20) mg/dL Creatinine (0.66-1.25) mg/dL Est GFR (CKD-EPI)AfAm (>60 ml/min/1.73 sqM) Est GFR (CKD-EPI)NonAf (>60 ml/min/1.73 sqM) Glucose (74-99) mg/dL Calcium (8.4-10.2) mg/dL Total Bilirubin (0.2-1.3) mg/dL AST (17-59) U/L ALT (4-49) U/L Alkaline Phosphatase (38-126) U/L Total Protein (6.3-8.2) g/dL Albumin (3.5-5.0) g/dL Amylase (30-110) U/L Lipase (23-300) U/L Urine Color Urine Appearance (Clear) Urine pH (5.0-8.0) Ur Specific [place] (1.001-1.035) Urine Protein (Negative) Urine Glucose (UA) (Negative) Urine Ketones (Negative) Urine Blood (Negative) Urine Nitrite (Negative) Urine Bilirubin (Negative) Urine Urobilinogen (<2.0) mg/dL Ur Leukocyte Esterase (Negative) Urine RBC (0-5) /hpf Urine WBC (0-5) /hpf Ur Squamous Epith Cells (0-4) /hpf Urine Bacteria (None) /hpf Urine Mucus (None) /hpf Influenza Type A (PCR) Not Detected (Not Detectd) Influenza Type B (PCR) Not Detected (Not Detectd) RSV (PCR) Not Detected (Not Detectd) SARS-CoV-2 (PCR) Not Detected (Not Detectd) Disposition Clinical Impression: Dehydration, Nausea, Viral gastroenteritis Disposition: HOME SELF-CARE Condition: Good Instructions (If sedation given, give patient instructions): Gastroenteritis (ED), Acute Nausea and Vomiting (ED) Prescriptions: Ondansetron Odt [Zofran Odt] 8 mg PO Q8HR PRN #12 tab PRN Reason: Nausea Is patient prescribed a controlled substance at d/c from ED?: No Referrals: Joao Cobb DO [Primary Care Provider] - 1-2 days Time of Disposition: 23:36
== END 2022-10-06 18:13 | disposition home or self-care (01) ==
LOC: EC 14:17
DX: A08.4 Viral intestinal infection, unspecified (principal); E86.0 Dehydration; R11.0 Nausea; M19.90 Unspecified osteoarthritis, unspecified site; E07.9 Disorder of thyroid, unspecified; F41.9 Anxiety disorder, unspecified; F17.200 Nicotine dependence, unspecified, uncomplicated; Z79.890 Hormone replacement therapy; Z79.1 Long term (current) use of non-steroidal anti-inflammatories (NSAID); Z20.822 Contact with and (suspected) exposure to COVID-19
CPT/HCPCS: 36415; 80053; 82150; 83690; 85025; 81001; 87636; 99284; 96374; 96361; J2765; 80061; 84439; 84443

== ENCOUNTER 2022-12-31 08:35 | Day surgery (SDC) | payer MEDICARE, OTHER ==
[~2022-12-31 08:35] MED LIST changes: -LACTATED RINGERS 1,000 ML IV SCH; +LIDOCAINE 1% (10MG/ML) FOR IV START INTRADERMA PRN
[2022-12-31 09:04] VITALS: TEMP 97.7
[2022-12-31] MEDS: LACTATED RINGERS 1,000 ML IV SCH ×2 (09:15→09:55)
[2022-12-31] MEDS ORDERED: PROPOFOL 10 MG/ML 20 ML VIAL IV ONE (09:56)
--- NOTE | 2022-12-31 10:17 | P.PCN ---
Date of Procedure: 12/31/22 Procedure(s) Performed: BRIEF HISTORY: Patient is a 57-year-old pleasant white male scheduled for an elective colonoscopy as a part of screening for colon cancer and family history of colon cancer. His brother was diagnosed with colon cancer at age 45. PROCEDURE PERFORMED: Colonoscopy. PREOPERATIVE DIAGNOSIS: Screening for colon cancer and family history of colon cancer. IV sedation per Anesthesia. PROCEDURE: After informed consent was obtained, the patient, was brought into the endoscopy unit. IV sedation was administered by Anesthesia under continuous monitoring. Digital rectal examination was normal. Initially the Olympus CF-160 flexible video colonoscope was then inserted in the rectum, gradually advanced into the cecum without any difficulty. Careful examination was performed as the scope was gradually being withdrawn. Ileocecal valve and the appendiceal orifice were visualized and appeared normal. Prep was excellent. Mucosa of the cecum, ascending colon, transverse colon, descending colon, sigmoid colon, and rectum appeared normal. Retroflexion was performed in the rectum and no lesions were seen. The patient tolerated the procedure well. IMPRESSION: Normal-appearing colon from rectum to cecum with no evidence of colorectal neoplasia. RECOMMENDATIONS: Findings of this examination were discussed with the patient as well as his family. He was advised to have a repeat screening colonoscopy in 5 years because of family history of colon cancer..
[2022-12-31 10:45] VITALS: BP 129/82; PULSE 75; RESP 20
== END 2022-12-31 10:47 | disposition home or self-care (01) ==
LOC: ORWHC2ENDO 08:35
PROVIDERS: ATTEND Internal Medicine Gastroenterology
DX: Z12.11 Encounter for screening for malignant neoplasm of colon (principal); M19.90 Unspecified osteoarthritis, unspecified site; F17.210 Nicotine dependence, cigarettes, uncomplicated; E07.9 Disorder of thyroid, unspecified; F41.9 Anxiety disorder, unspecified; K21.9 Gastro-esophageal reflux disease without esophagitis; Z79.890 Hormone replacement therapy; Z79.899 Other long term (current) drug therapy; Z98.890 Other specified postprocedural states; Z80.0 Family history of malignant neoplasm of digestive organs
CPT/HCPCS: J2704; G0105

== ENCOUNTER → 2023-03-10 | Outpatient (CLI) | payer MEDICARE, OTHER ==
--- NOTE | 2023-03-10 10:28 | CT ---
EXAMINATION TYPE: CT lumbar spine wo con CT DLP: 1154 mGycm, Automated exposure control for dose reduction was used. DATE OF EXAM: 03/10/2023 10:17 AM COMPARISON: MRI lumbar spine 03/10/2023, lumbar spine radiograph 03/06/2023. CLINICAL INDICATION:Male, 57 years old with history of M41.86 SCOLIOSIS, LUMBAR REGION; PHH, scoliosi s of the lumbar region TECHNIQUE: Multiple axial images were obtained from the midportion of T11 through the sacroiliac douglas nts. Soft tissue and bone windows in coronal and sagittal planes were obtained and reviewed. FINDINGS: Alignment: There are 5 lumbar type vertebral bodies. Grade 1 anterolisthesis of 5 on S1 without evide nce of pars defects. Levoconvex curvature of the lumbar spine. [place] is at L2. Bone: No evidence of acute fracture is identified. Chronic compression for deformity of the L4 verte bral body with approximately 40% height loss and 2 mm retropulsion. Degenerative changes of both SI j oints. Multilevel anterior osteophytosis. Multilevel facet arthropathy. Discs: Multilevel Schmorl's nodes. Vacuum disc disease at L4-L5 and L5-S1. T12-L1: No spinal canal or neural foraminal stenosis is identified. L1-L2: Minimal broad based disc bulge without significant effacement of the intrathecal sac. The neur al foramen are patent bilaterally. L2-L3: Broad-based disc bulge with mild effacement of the intrathecal sac. The neural foramen are pat ent bilaterally. L3-L4: Based disc bulge with ligamentum flavum buckling bilateral facet arthropathy contribute to mil [id number] central canal stenosis. Mild bilateral neural foraminal stenosis. L4-L5: Broad-based disc bulge with ligamentum flavum buckling facet arthropathy contribute to mild c entral canal stenosis. The left neural foramen is patent. Mild right neural foraminal stenosis. L5-S1: Grade 1 anterolisthesis with uncovering of the disc. Broad-based disc bulge. Ligament flavum b uckling bilateral facet arthropathy contributing to mild central canal stenosis. Moderate left neural foraminal stenosis. Mild right neural foraminal stenosis. Other: None IMPRESSION: 1. No evidence of acute fracture of the lumbar spine. Remote L4 vertebral body compression fracture d emonstrated. 2. Similar grade 1 anterolisthesis of L5 on S1. 3. Moderate multilevel degenerative disc disease and facet arthropathy as described above. Please ref er to dedicated MRI lumbar spine the same day for findings. 4. Levoscoliosis of the thoracolumbar spine.
--- NOTE | 2023-03-10 11:53 | MR ---
EXAMINATION TYPE: MR lumbar spine wo con DATE OF EXAM: 03/10/2023 COMPARISON: 12/17/2019 HISTORY: Pain TECHNIQUE: T1 and T2 axial and sagittal images of the lumbar spine are submitted. FINDINGS: There is no abnormal signal seen within the visualized spinal cord or paraspinal soft tissu es. There is a stable appearing scoliotic spine. There is a chronic appearing compression fracture wi thin the mid lumbar spine and there is multilevel Schmorl's nodes. There is loss of disc signal and l evels with most marked findings of L3-4, L4-5 and L5-S1. Findings are similar to the prior exam. There appears to be a transitional lumbar segment with partial lumbarization of S1 and rudimentary S1 -S2 disc. Again radiographic correlation is recommended prior to surgical intervention. There is grade 1 anterolisthesis of L5 on S1. Vertebral body height loss thought to predominantly be as a result of extensive degenerative disc disease and Schmorl's node formation is seen of the L4 rene tebral body without bone marrow edema. Modic type II degenerative endplate changes are seen in additi on to multiple other Schmorl's nodes. There is an S-shaped scoliotic curvature of the thoracolumbar s pine, levoconvex of the lumbar spine. L1-L2: There is disc desiccation, a broad-based disc bulge, and minimal facet arthropathy without spi nal canal stenosis or neural foraminal narrowing. L2-L3: There is a broad-based disc bulge greater paracentrally to the right, facet arthropathy and li gament of flavum buckling without spinal canal stenosis or neural foraminal narrowing. L3-L4: There is a right lateral disc herniation with extent into the neural foramen creating moderate to severe right neural foraminal stenosis. Findings are superimposed upon a broad-based disc bulge w ith facet arthropathy that together create mild left neural foraminal narrowing and mild spinal canal stenosis. L4-L5: There is a right lateral disc herniation with extent into the neural foramen creating moderate right neural foraminal narrowing. Facet arthropathy and ligamentum flavum buckling are seen creating mild left neural foraminal narrowing and mild spinal canal stenosis. L5-S1: There is annular tear and a broad-based disc bulge as well as left lateral disc herniation. Th is contamination with facet hypertrophy and marked ligamentum flavum buckling create severe spinal ca nal stenosis, severe left neural foraminal narrowing and mild right neural foraminal narrowing. IMPRESSION: 1. Multilevel severe degenerative disc disease is stable from prior exam. 2. Right lateral disc herniation at L3-L4 that in combination with degenerative changes create modera te to severe right neural foraminal narrowing, mild left neural foraminal narrowing and mild spinal c anal stenosis. Stable. 3. Right lateral disc herniation with extension into the neural foramen creating moderate right neuro foraminal narrowing at L4-L5 as well as mild left neural foraminal narrowing and mild spinal canal st enosis. 4. Left lateral disc herniation at L5-S1 examination with degenerative changes create severe spinal c anal stenosis, severe left neural foraminal narrowing and mild right neuroforaminal narrowing. Findin gs are similar to prior exam. 5. S-shaped scoliosis of the thoracolumbar spine. 6. Persistent grade 1 anterolisthesis of presumed L5 on S1. Correlate with numbering system utilized prior to any surgical intervention. 7. Stable chronic appearing endplate compression fracture of L4 without bone marrow edema.
== END | disposition home or self-care (01) ==
LOC: RADMRIMAIN 08:56
PROVIDERS: ATTEND Orthopaedic Surgery
DX: M48.56XA Collapsed vertebra, not elsewhere classified, lumbar region, initial encounter for fracture (principal); M47.817 Spondylosis without myelopathy or radiculopathy, lumbosacral region; M41.86 Other forms of scoliosis, lumbar region; M51.36 Other intervertebral disc degeneration, lumbar region; M51.37 Other intervertebral disc degeneration, lumbosacral region; M99.73 Connective tissue and disc stenosis of intervertebral foramina of lumbar region
CPT/HCPCS: 72131; 72148

== ENCOUNTER → 2023-03-24 | Outpatient (CLI) | payer MEDICARE, OTHER ==
[2023-03-24 13:37] VITALS: BP 115/72; PULSE 96; RESP 15; TEMP 98.2
--- NOTE | 2023-03-24 13:46 | P.CONS ---
History of Present Illness - Reason for Consult Consult date: 03/24/23 - Chief Complaint Low back pain - History of Present Illness This is a 49-year-old gentleman with history of chronic lower back pain for which she failed to respond to physical therapy and to interventional pain procedures. The patient has been using Percocet 10 mg 3 times a day prescribed to him by Dr. Simms. The patient complains of lower back pain with radiation to both hips more on the left side than the right side. He denies any bowel or bladder problems or any tingling, numbness in the lower extremities. He feels some weakness in the lower extremities however. His last physical therapy was in 2018. He admits to using marijuana and smoking 1 pack of cigarettes a day. He never had any surgeries on his back. This pain occasionally goes to the right knee. His lumbar spine MRI showed multilevel severe degenerative disc disease, right lateral disc herniation at L3-L4 level and moderate to severe right neural foraminal narrowing, moderate right foraminal narrowing at L4 5 level, disc herniation at L5-S1 level with severe spinal canal stenosis, scoliosis of the thoracolumbar spine, grade 1 anterolisthesis of L5 on S1, chronic compression fracture of L4 without Borromeo or edema Review of Systems Cardiovascular: Denies chest pain, Denies shortness of breath Respiratory: Denies cough Musculoskeletal: Reports as per HPI Neurological: Reports as per HPI Past Medical History Past Medical History: Musculoskeletal Disorder, Osteoarthritis (OA), Skin Disorder, Thyroid Disorder Additional Past Medical History / Comment(s): Hx of psoriasis, degenerative and herniated discs, scoliosis. History of Any Multi-Drug Resistant Organisms: None Reported Additional Past Surgical History / Comment(s): Nail removed surgically from rt knee, pain clinic procedures. Past Anesthesia/Blood Transfusion Reactions: No Reported Reaction Smoking Status: Current every day smoker - Past Family History Brother(s) Family Medical History: Cancer Mother Family Medical History: Cancer Medications and Allergies Home Medications Medication Instructions Recorded Confirmed Type Levothyroxine Sodium [Synthroid] 125 mcg PO DAILY 03/03/17 12/26/22 History Baclofen [Lioresal] 10 mg PO BID PRN 10/06/22 12/26/22 History Escitalopram [Lexapro] 20 mg PO PC-LUNCH 10/06/22 12/26/22 History Omeprazole [PriLOSEC] 40 mg PO Q2D 10/06/22 12/26/22 History oxyCODONE HCL/ACETAMINOPHEN 1 tab PO TID 10/06/22 12/26/22 History [Percocet 10-325 mg] traZODone HCL [Desyrel] 100 mg PO HS PRN 10/06/22 12/26/22 History Allergies Allergy/AdvReac Type Severity Reaction Status Date / Time No Known Allergies Allergy Verified 03/24/23 13:22 Physical Exam Vitals: Intake and Output 03/23/23 03/24/23 03/24/23 22:59 06:59 14:59 Other: Weight 81.647 kg - Constitutional General appearance: average body habitus - EENT Eyes: PERRLA - Neurologic Exam of the lower extremities showed normal and symmetrical muscle strength and deep tendon reflexes. Straight leg raising test negative bilaterally Internal and external rotation of left hip pain was painful Positive tenderness in the lumbar paravertebral musculature bilaterally Facet loading test negative bilaterally Neurologic: CNII-XII intact Assessment and Plan Plan: This is a 57-year-old gentleman with severe mostly axial lower back pain due to severe degenerative disc disease and neural foraminal and central stenosis plus facet arthropathy. Possible left hip osteoarthritis, I will send the patient to have two-view x-ray of the left hip Positive smoker and marijuana use her Opioid use Percocet 10 mg 3 times a day The patient has a legitimate medical condition for which he might be a candidate for opioid treatment however he would have to stop using marijuana if he wants us to prescribe opioids for him. I will see the patient 1 month from now. He has enough Percocet until the end of April as he states.
== END ==
LOC: PNWHC3 12:58
PROVIDERS: ATTEND Anesthesiology
DX: M51.16 Intervertebral disc disorders with radiculopathy, lumbar region (principal); G89.29 Other chronic pain; M48.061 Spinal stenosis, lumbar region without neurogenic claudication; M41.9 Scoliosis, unspecified; M16.12 Unilateral primary osteoarthritis, left hip; M19.90 Unspecified osteoarthritis, unspecified site; E07.9 Disorder of thyroid, unspecified; F17.210 Nicotine dependence, cigarettes, uncomplicated; Z79.890 Hormone replacement therapy
CPT/HCPCS: 99211

== ENCOUNTER → 2023-03-26 | Outpatient (CLI) | payer MEDICARE, OTHER ==
--- NOTE | 2023-03-26 17:27 | XR ---
EXAMINATION TYPE: XR Hip Bilateral 2 views Complete DATE OF EXAM: 03/26/2023 COMPARISON: NONE HISTORY: 57-year-old male M16.10, bilateral hip pain TECHNIQUE: 2 views each side FINDINGS: Moderately marginal spurring at the hips. Mild subarticular sclerosis at the right SI joint. Bilatera l hip joint spaces are relatively maintained. No acute fracture, subluxation, or dislocation seen. IMPRESSION: Mild right SI joint OA. Very early degenerative spurring at both hips but with preserved joint spaces.
== END | disposition home or self-care (01) ==
LOC: RADXRMAIN 11:26
PROVIDERS: ATTEND Physician Assistant Medical
DX: M46.1 Sacroiliitis, not elsewhere classified (principal); M25.751 Osteophyte, right hip; M25.752 Osteophyte, left hip
CPT/HCPCS: 73521

== ENCOUNTER → 2023-04-22 | Outpatient (CLI) | payer MEDICARE, OTHER ==
[2023-04-22 13:57] VITALS: BP 128/86; PULSE 82; RESP 16; TEMP 99.7
--- NOTE | 2023-04-22 14:43 | P.PAINPG ---
PQRS Measure Charge Sheet Comment: A 49 yr old male with a history of severe and chronic LBP secondary to lumbar DDD and spondylosis with facet arthropathy without myelopathy presents today for L hip x ray results. Pain level is provoked at 8/10 in intensity, constant, localized in the lumbar spine, sharp in character w shooting towards the L hip. Pain is provoked by . Pain is alleviated with medications, PT in 2019, yoga stretches daily since 2019, chiropractic treatments in 2018, use of a cane for ambulatory assistance, topical, repositioning and rest. Oswestry axial pain score at . Interventional pain procedures completed include unknown, but pt stated they were costly and unsuccessful Patient is currently on Percoet 10/325mg #90, Cannabis use Patient denies any side effects of the medication(s), denies excessive drowsiness or sleepiness, denies suicidal ideation and reports that the current pain medication is helping to control the pain and improve activities of daily living. Patient denies any motor or sensory deficits. Patient denies any fever or night sweats, denies any change in the bowel movements or urination. Physical Examination: -Constitutional: Cooperative. Not in acute distress . - Neurologic: Cranial nerve II to XII intact. No focal neurological deficits. - Psychatric: Alert & oriented x 3. Matching mood & appropriate affect. Judgment and insight intact. - Musculoskeletal: Cervical spine: Muscle bulk/ tone/ strength in the bilateral upper extremities normal Vertebral body tenderness to palpation over Spurling test positive Distraction test positive Facet loading test positive TTP Thoracic spine Muscle bulk / tone/ strength in the bilateral paraspinal muscles normal Vertebral body tender to palpation over Facet loading test positive TTP Lumbar spine: Motor bulk/ tone/ strength lower extremities , thigh and legs : 5/5 Deep tendon reflexes : Normal Knee Jerk. Normal Ankle Jerk . Vertebral body tenderness to palpation over Lopes Test positive Lumbar Facet Loading Test positive Straight Leg Raise: positive at 30 degrees right side/ left side Gaenslen's Test positive Sacral spine : Severe tenderness over the Sacroiliac joint: right side / left side Range of motion: Flexion of the lumbar spine <60 degrees Range of motion: Extension of the lumbar spine <20 degrees Gaenslen's Test positive right side / left side Malik test: positive right side / left side Thigh Thrust Test positive right side / left side Sacral Thrust Test positive right side / left side Imaging: Lumbar x ray from 01/13/19 reviewed X ray of L hip from 01/13/19 reviewed Assessment and plan: Chronic LBP secondary to lumbar DDD, spondylosis with facet arthropathy without myelopathy Pt not interested in additional imaging or targeted injections for pain relief. He will follow up w physicians on the list received from Dr Leal's office. All questions answered. I have spent less than 30 minutes on patient care today. Dr Rowe was availa ble by phone for the evaluation of this patient. The time was used to review the medical records including relevant urine studies and Prescription history (MAPs), review of the available imaging, evaluation and examination of the patient, coordination of care with the medical staff and if applicable referring physicians, as well as creation of the medical record PQRS Narrative: Smoking Status Current every day smoker Hx Alcohol Use (MH) Yes: social Home Medications: Ambulatory Orders Levothyroxine Sodium [Synthroid] 125 mcg PO DAILY 03/03/17 Baclofen [Lioresal] 10 mg PO BID PRN 10/06/22 Escitalopram [Lexapro] 20 mg PO PC-LUNCH 10/06/22 Omeprazole [PriLOSEC] 40 mg PO Q2D 10/06/22 oxyCODONE HCL/ACETAMINOPHEN [Percocet 10-325 mg] 1 tab PO TID 10/06/22 traZODone HCL [Desyrel] 100 mg PO HS PRN 10/06/22 Controlled Substance Measures - Controlled Substance Measures Is patient prescribed a controlled substance at discharge?: No
== END ==
LOC: PNWHC3 12:53
PROVIDERS: ATTEND Specialist
DX: M51.36 Other intervertebral disc degeneration, lumbar region (principal); M47.816 Spondylosis without myelopathy or radiculopathy, lumbar region; G89.29 Other chronic pain; F17.200 Nicotine dependence, unspecified, uncomplicated
CPT/HCPCS: 99211

== ENCOUNTER 2023-07-29 10:37 | Emergency (ER) | payer MEDICARE, OTHER ==
[2023-07-29 10:41] VITALS: RESP 18
--- NOTE | 2023-07-29 10:57 | ED ---
Back Pain HPI - General Chief Complaint: Back Pain/Injury Stated Complaint: Back Injury Time Seen by Provider: 07/29/23 10:40 Source: patient, RN notes reviewed Limitations: no limitations - History of Present Illness Initial Comments: Patient is a 57-year-old male presented ER with chief complaint of back pain. Patient reports he has had a lifetime of broken bones including vertebrae. Patient follows up with Dr. Bello. Patient states for about a week he has been experiencing increasing back pain which feels like a break. Patient states he took 2 Percocet earlier today for pain relief. He denies any new onset radiating pain down his legs, bowel or bladder incontinence, inability to walk, fevers, IV drug use. Patient has no other complaints at this time. 3 - Related Data Home Medications Medication Instructions Recorded Confirmed Levothyroxine Sodium [Synthroid] 125 mcg PO DAILY 03/03/17 04/22/23 Baclofen [Lioresal] 10 mg PO BID PRN 10/06/22 04/22/23 Escitalopram [Lexapro] 20 mg PO PC-LUNCH 10/06/22 04/22/23 Omeprazole [PriLOSEC] 40 mg PO Q2D 10/06/22 04/22/23 oxyCODONE HCL/ACETAMINOPHEN 1 tab PO TID 10/06/22 04/22/23 [Percocet 10-325 mg] traZODone HCL [Desyrel] 100 mg PO HS PRN 10/06/22 04/22/23 Allergies Allergy/AdvReac Type Severity Reaction Status Date / Time No Known Allergies Allergy Verified 07/29/23 10:40 Review of Systems ROS Statement: Those systems with pertinent positive or pertinent negative responses have been documented in the HPI. ROS Other: All systems not noted in ROS Statement are negative. Past Medical History Past Medical History: Musculoskeletal Disorder, Osteoarthritis (OA), Skin Disorder, Thyroid Disorder Additional Past Medical History / Comment(s): Hx of psoriasis, degenerative and herniated discs, scoliosis. History of Any Multi-Drug Resistant Organisms: None Reported Additional Past Surgical History / Comment(s): Nail removed surgically from rt knee, pain clinic procedures. Past Anesthesia/Blood Transfusion Reactions: No Reported Reaction Past Psychological History: Anxiety Smoking Status: Current every day smoker Past Alcohol Use History: Rare Past Drug Use History: Marijuana - Past Family History Brother(s) Family Medical History: Cancer Mother Family Medical History: Cancer General Exam Limitations: no limitations General appearance: alert, in no apparent distress Head exam: Present: atraumatic, normocephalic, normal inspection Respiratory exam: Present: normal lung sounds bilaterally. Absent: respiratory distress, wheezes, rales, rhonchi, stridor Cardiovascular Exam: Present: regular rate, normal rhythm, normal heart sounds. Absent: systolic murmur, diastolic murmur, rubs, gallop, clicks Back exam: Present: tenderness (lumbar spine and pelvic gurdle), other (negative bilateral straight leg raise ) Neurological exam: Present: alert, oriented X3, CN II-XII intact Psychiatric exam: Present: normal affect, normal mood Skin exam: Present: warm, dry, intact, normal color. Absent: rash Course Vital Signs 07/29/23 07/29/23 10:38 12:18 Temperature 98.8 F 98.6 F Pulse Rate 87 82 Respiratory 18 18 Rate Blood Pressure 139/78 136/78 O2 Sat by Pulse 97 99 Oximetry Medical Decision Making - Medical Decision Making Was pt. sent in by a medical professional or institution (, PA, REHAB THERAPY MANAGER, urgent care, hospital, or senior care...) When possible be specific @ -No Did you speak to anyone other than the patient for history (EMS, parent, family, police, friend...)? What history was obtained from this source @ -No Did you review nursing and triage notes (agree or disagree)? Why? @ -I reviewed and agree with nursing and triage notes Were old charts reviewed (outside hosp., previous admission, EMS record, old EKG, old radiological studies, urgent care reports/EKG's, senior care records)? Report findings @ -No old charts were reviewed Differential Diagnosis (chest pain, altered mental status, abdominal pain women, abdominal pain men, vaginal bleeding, weakness, fever, dyspnea, syncope, headache, dizziness, GI bleed, back pain, seizure, CVA, palpatations, mental health, musculoskeletal)? @ -Differential Back Pain: Strain, zoster, cauda equina syndrome, epidural abscess, vertebral osteomyelitis, discitis, fracture, subluxation, disc herniation, DJD, spinal stenosis, dissection, AAA, pancreatitis, peptic ulcer disease, pyelonephritis, kidney stone, this is not meant to be an all-inclusive list. EKG interpreted by me (3pts min.). @ -None X-rays interpreted by me (1pt min.). @ -Lumbar spine xrays are significant for chronic changes. Grade 1 spondylolithesis of L5 anteriorly on S1. Chronic compression deformity superior endplate L4. Degenerative disc L5-S1 with posterior disc space narrowing. CT interpreted by me (1pt min.). @ -None done U/S interpreted by me (1pt. min.). @ -None done What testing was considered but not performed or refused? (CT, X-rays, U/S, labs)? Why? @ -None What meds were considered but not given or refused? Why? @ -I offered pain medication but patient refused. Did you discuss the management of the patient with other professionals (professionals i.e. , PA, REHAB THERAPY MANAGER, lab, RT, psych nurse, social sciences lecturer, warp placer, teacher, staff air defense officer, immigration case worker)? Give summary @ -No Was smoking cessation discussed for >3mins.? @ -No Was critical care preformed (if so, how long)? @ -No Were there social determinants of health that impacted care today? How? (Homelessness, low income, unemployed, alcoholism, drug addiction, transportation, low edu. Level, literacy, decrease access to med. care, group home, rehab)? @ -No Was there de-escalation of care discussed even if they declined (Discuss DNR or withdrawal of care, Hospice)? DNR status @ -No What co-morbidities impacted this encounter? (DM, HTN, Smoking, COPD, CAD, Cancer, CVA, ARF, Chemo, Hep., AIDS, mental health diagnosis, sleep apnea, morbid obesity)? @ -None Was patient admitted / discharged? Hospital course, mention meds given and route, prescriptions, significant lab abnormalities, going to OR and other pertinent info. @ -Discharge. Patient is a 57-year-old male presented ER with chief complaint of back pain. Vital stable. History physical exam were completed. No red flag back pain symptoms present. X-rays obtained in the ER are significant for chronic changes. I discussed imaging findings with patient. I advised him to follow-up with his spine specialists if symptoms persist. Return parameters were discussed. Patient will be discharged in stable condition with follow-up to orthopedics/PCP. Patient expressed understanding and agreement with care plan. Undiagnosed new problem with uncertain prognosis? @ -No Drug Therapy requiring intensive monitoring for toxicity (Heparin, Nitro, Insulin, Cardizem)? @ -No Were any procedures done? @ -No Diagnosis/symptom? @ -Back pain Acute, or Chronic, or Acute on Chronic? @ -Chronic Uncomplicated (without systemic symptoms) or Complicated (systemic symptoms)? @ -Uncomplicated Side effects of treatment? @ -No Exacerbation, Progression, or Severe Exacerbation? @ -No Poses a threat to life or bodily function? How? (Chest pain, [place], [place], pneumonia, PE, COPD, DKA, ARF, appy, cholecystitis, CVA, Diverticulitis, Homicidal, Suicidal, threat to staff... and all critical care pts) @ -No - Radiology Data Radiology results: report reviewed, image reviewed Disposition Clinical Impression: Chronic back pain Disposition: HOME SELF-CARE Condition: Stable Additional Instructions: Please follow-up with orthopedics if symptoms persist. Return to the ER for any new or worsening symptoms. Is patient prescribed a controlled substance at d/c from ED?: No Referrals: Joao Cobb DO [Primary Care Provider] - 1-2 days Time of Disposition: 12:13
--- NOTE | 2023-07-29 11:55 | XR ---
EXAMINATION TYPE: XR lumbosacral spine min 4V DATE OF EXAM: 07/29/2023 COMPARISON: 01/13/2019 HISTORY: Pain TECHNIQUE: 5 view lumbar spine FINDINGS: There are 5 lumbar-type vertebral bodies. Pedicles are intact. Scoliosis is present. Facet degenerative changes present in the lower lumbar spine. No spondylolytic defects are evident. There is degenerative disc change L4-5 and L5-S1. Narrowing at posterior L3-4 disc is present. 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 There is superior endplate compression deformity of L4. This was present previously. IMPRESSION: 1. There may be a minimal grade 1 spondylolisthesis of L5 anteriorly on S1. 2. Degenerative disc L5-S1 with posterior disc space narrowing L3-4, L4-5 and to mild degree L2-L3. 3. Chronic compression deformity superior endplate L4
[2023-07-29 12:39] VITALS: BP 136/78; PULSE 82; TEMP 98.6
== END 2023-07-29 12:21 | disposition home or self-care (01) ==
LOC: EC 10:37
DX: G89.29 Other chronic pain (principal); M43.17 Spondylolisthesis, lumbosacral region; M48.07 Spinal stenosis, lumbosacral region; M51.37 Other intervertebral disc degeneration, lumbosacral region; E07.9 Disorder of thyroid, unspecified; F41.9 Anxiety disorder, unspecified; F17.200 Nicotine dependence, unspecified, uncomplicated; F12.90 Cannabis use, unspecified, uncomplicated; Z79.890 Hormone replacement therapy; Z79.899 Other long term (current) drug therapy
CPT/HCPCS: 72110; 99283

== ENCOUNTER 2024-04-30 16:27 | Emergency (ER) | payer MEDICARE ==
--- NOTE | 2024-04-30 16:45 | ED ---
Extremity Problem HPI - General Chief complaint: Extremity Problem,Nontraumatic Stated complaint: L leg injury Time Seen by Provider: 04/30/24 16:43 Source: patient, RN notes reviewed Mode of arrival: ambulatory Limitations: no limitations - History of Present Illness Initial comments: 58-year-old male presented to ER with a chief complaint of left leg pain. 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 States since then he has been endorsing pain to the lateral aspect of his left knee down to his calf. He notices bruising. He is able to bear weight but states this exacerbates his pain. He denies any paresthesias. Denies any limited range of motion. He has been taking prescribed Percocet for pain which has mildly helped. No other injuries or complaints. - Related Data Home Medications Medication Instructions Recorded Confirmed Levothyroxine Sodium [Synthroid] 125 mcg PO DAILY 03/03/17 04/22/23 Baclofen [Lioresal] 10 mg PO BID PRN 10/06/22 04/22/23 Escitalopram [Lexapro] 20 mg PO PC-LUNCH 10/06/22 04/22/23 Omeprazole [PriLOSEC] 40 mg PO Q2D 10/06/22 04/22/23 oxyCODONE HCL/ACETAMINOPHEN 1 tab PO TID 10/06/22 04/22/23 [Percocet 10-325 mg] traZODone HCL [Desyrel] 100 mg PO HS PRN 10/06/22 04/22/23 Allergies Allergy/AdvReac Type Severity Reaction Status Date / Time No Known Allergies Allergy Verified 07/29/23 10:40 Review of Systems ROS Statement: Those systems with pertinent positive or pertinent negative responses have been documented in the HPI. ROS Other: All systems not noted in ROS Statement are negative. Past Medical History Past Medical History: Musculoskeletal Disorder, Osteoarthritis (OA), Skin Disorder, Thyroid Disorder Additional Past Medical History / Comment(s): Hx of psoriasis, degenerative and herniated discs, scoliosis. History of Any Multi-Drug Resistant Organisms: None Reported Additional Past Surgical History / Comment(s): Nail removed surgically from rt knee, pain clinic procedures. Past Anesthesia/Blood Transfusion Reactions: No Reported Reaction Past Psychological History: Anxiety Smoking Status: Current every day smoker Past Alcohol Use History: Rare Past Drug Use History: Marijuana - Past Family History Brother(s) Family Medical History: Cancer Mother Family Medical History: Cancer General Exam Limitations: no limitations General appearance: alert, in no apparent distress Respiratory exam: Present: normal lung sounds bilaterally. Absent: respiratory distress, wheezes, rales, rhonchi, stridor Cardiovascular Exam: Present: regular rate, normal rhythm, normal heart sounds. Absent: systolic murmur, diastolic murmur, rubs, gallop, clicks Extremities exam: Present: tenderness (Left lateral knee. Just inferior is a contusion. Over tibial to her tuberosity there is a fluctuant area measuring 3 cm x 2 cm. Patient has full active range of motion. 2+ left dorsalis pedis and posterior tibialis pulses. 5+ left lower extremity strength.), other (No calf tenderness.) Course Vital Signs 04/30/24 04/30/24 16:29 17:51 Temperature 98.7 F 98.0 F Pulse Rate 86 81 Respiratory 16 18 Rate Blood Pressure 159/89 146/82 O2 Sat by Pulse 97 97 Oximetry Medical Decision Making - Medical Decision Making Was pt. sent in by a medical professional or institution (, PA, YIELD ANALYST, urgent care, hospital, or snf...) When possible be specific @ -No Did you speak to anyone other than the patient for history (EMS, parent, family, police, friend...)? What history was obtained from this source @ -No Did you review nursing and triage notes (agree or disagree)? Why? @ -I reviewed and agree with nursing and triage notes Were old charts reviewed (outside hosp., previous admission, EMS record, old EKG, old radiological studies, urgent care reports/EKG's, snf records)? Report findings @ -No old charts were reviewed Differential Diagnosis (chest pain, altered mental status, abdominal pain women, abdominal pain men, vaginal bleeding, weakness, fever, dyspnea, syncope, headache, dizziness, GI bleed, back pain, seizure, CVA, palpatations, mental health, musculoskeletal)? @ -Differential Musculoskeletal: Muscular strain, contusion, ligament sprain, fracture, arthritis, septic arthritis, bursitis, cellulitis, muscle spasm, nerve compression, DVT, arterial occlusion, herpes zoster, electrolyte abnormality, tumor.... This is not meant to be in all inclusive list EKG interpreted by me (3pts min.). @ -None done X-rays interpreted by me (1pt min.). @ -Left knee x-ray negative for acute osseous process. CT interpreted by me (1pt min.). @ -None done U/S interpreted by me (1pt. min.). @ -None done What testing was considered but not performed or refused? (CT, X-rays, U/S, labs)? Why? @ -None What meds were considered but not given or refused? Why? @ -Patient refused analgesic medications. Did you discuss the management of the patient with other professionals (professionals i.e. , PA, YIELD ANALYST, lab, RT, psych nurse, social services designee, filters assembler, teacher, juvenile officer, insurance case manager)? Give summary @ -No Was smoking cessation discussed for >3mins.? @ -No Was critical care preformed (if so, how long)? @ -No Were there social determinants of health that impacted care today? How? (Homelessness, low income, unemployed, alcoholism, drug addiction, transportation, low edu. Level, literacy, decrease access to med. care, retirement, rehab)? @ -No Was there de-escalation of care discussed even if they declined (Discuss DNR or withdrawal of care, Hospice)? DNR status @ -No What co-morbidities impacted this encounter? (DM, HTN, Smoking, COPD, CAD, Cancer, CVA, ARF, Chemo, Hep., AIDS, mental health diagnosis, sleep apnea, morbid obesity)? @ -None Was patient admitted / discharged? Hospital course, mention meds given and route, prescriptions, significant lab abnormalities, going to OR and other pertinent info. @ -Discharge. 58-year-old male presented to ER with a chief complaint of left knee pain after kneeling. History and physical exam completed. Vitals within normal limits. Patient no signs of acute distress. Left lower extremity neurovascular intact. There is edema and bruising to left lateral knee. Patient has full active range of motion. Small hematoma to tibial tuberosity. No calf tenderness. X-rays obtained negative for acute process. Patient refused analgesic medications as he takes Percocet at home. Pain believed to be contusion and overuse injury. Jaylon wrap given. Conservative treatment options discussed. Advised [id number] Tylenol and ibuprofen for pain control. Strict return parameters discussed. Patient discharged in stable condition with follow-up to PCP. Patient verbally expressed understanding and agreement with care plan. Case discussed with ED attending, Dr. Valencia. Undiagnosed new problem with uncertain prognosis? @ -No Drug Therapy requiring intensive monitoring for toxicity (Heparin, Nitro, Insulin, Cardizem)? @ -No Were any procedures done? @ -No Diagnosis/symptom? @ -Contusion/knee pain Acute, or Chronic, or Acute on Chronic? @ -Acute Uncomplicated (without systemic symptoms) or Complicated (systemic symptoms)? @ -Uncomplicated Side effects of treatment? @ -No Exacerbation, Progression, or Severe Exacerbation? @ -No Poses a threat to life or bodily function? How? (Chest pain, USA, OR, pneumonia, PE, COPD, DKA, ARF, appy, cholecystitis, CVA, Diverticulitis, Homicidal, Suicidal, threat to staff... and all critical care pts) @ -No - Radiology Data Radiology results: report reviewed, image reviewed Disposition Clinical Impression: Contusion, Knee pain Disposition: HOME SELF-CARE Condition: Stable Instructions (If sedation given, give patient instructions): Knee Pain (ED) Additional Instructions: Recommend rest, ice, compression and elevation. Continue to bend knee and complete range of motion exercises. Follow-up with PCP. Also recommend [id number] anti-inflammatories such as ibuprofen. Return to the ER for any new or worsening concerns. Is patient prescribed a controlled substance at d/c from ED?: No Referrals: Joao Cobb DO [Primary Care Provider] - 1-2 days Time of Disposition: 17:23
--- NOTE | 2024-04-30 17:12 | XR ---
EXAMINATION TYPE: XR knee complete LT DATE OF EXAM: 04/30/2024 COMPARISON: None HISTORY: Pain after kneeling TECHNIQUE: 3 view left knee FINDINGS: No acute osseous abnormality radiographically apparent. No joint effusion evident. Soft tis sues appear normal. Joint space appears preserved. Follow-up can be performed as clinically indicated IMPRESSION: 1. No acute osseous abnormality left knee [facility], Workstation: [facility], 04/30/2024 5:10 PM
[2024-04-30 17:53] VITALS: BP 146/82; PULSE 81; RESP 18; TEMP 98
== END 2024-04-30 17:51 | disposition home or self-care (01) ==
LOC: EC 16:27 → SUPCPDRO 16:27 → EC 17:51
CPT/HCPCS: 99283

== ENCOUNTER 2024-05-17 15:03 | Emergency (ER) | payer MEDICARE ==
[2024-05-17 15:40] VITALS: TEMP 99.1
--- NOTE | 2024-05-17 16:49 | ED ---
General Adult HPI - General Chief complaint: Extremity Injury, Lower Stated complaint: leg pain Time Seen by Provider: 05/17/24 16:00 Source: patient, RN notes reviewed, old records reviewed Mode of arrival: ambulatory Limitations: no limitations - History of Present Illness Initial comments: Patient is a 58-year-old male who presents emergency department complaining of left leg pain. Patient originally presented multiple weeks ago after experiencing bruising and a atraumatic injury to his left leg. Was crawling around on the ground on tile. He experienced bruising to the leg. Imaging at that time was unremarkable. Began experiencing calf discomfort and had a sweating episode earlier. Never had any shortness of breath or chest pain. Denies any worsening significant swelling. Is chronically on Percocet at home. Presents for further evaluation at this time. Is not on blood thinners. Past medical history includes the chronic pain, thyroid disorder. Presents to rule a blood clot in the left lower extremity. - Related Data Home Medications Medication Instructions Recorded Confirmed Levothyroxine Sodium [Synthroid] 125 mcg PO DAILY 03/03/17 04/22/23 Baclofen [Lioresal] 10 mg PO BID PRN 10/06/22 04/22/23 Escitalopram [Lexapro] 20 mg PO PC-LUNCH 10/06/22 04/22/23 Omeprazole [PriLOSEC] 40 mg PO Q2D 10/06/22 04/22/23 oxyCODONE HCL/ACETAMINOPHEN 1 tab PO TID 10/06/22 04/22/23 [Percocet 10-325 mg] traZODone HCL [Desyrel] 100 mg PO HS PRN 10/06/22 04/22/23 Allergies Allergy/AdvReac Type Severity Reaction Status Date / Time No Known Allergies Allergy Verified 05/17/24 15:40 Review of Systems ROS Statement: Those systems with pertinent positive or pertinent negative responses have been documented in the HPI. Review of Systems: CONST: Denies fever EYES: Denies blurry vision ENT: Denies nasal congestion C/V: Denies Chest pain RESP: Denies shortness of breath GI: Denies abdominal pain : Denies dysuria SKIN: Endorses improving bruising to the left lower extremity. MSK: Endorses left calf pain. NEURO: Denies headache ROS Other: All systems not noted in ROS Statement are negative. Past Medical History Past Medical History: Musculoskeletal Disorder, Osteoarthritis (OA), Skin Disorder, Thyroid Disorder Additional Past Medical History / Comment(s): Hx of psoriasis, degenerative and herniated discs, scoliosis. History of Any Multi-Drug Resistant Organisms: None Reported Additional Past Surgical History / Comment(s): Nail removed surgically from rt knee, pain clinic procedures. Past Anesthesia/Blood Transfusion Reactions: No Reported Reaction Past Psychological History: Anxiety Smoking Status: Current every day smoker Past Alcohol Use History: Occasional, Rare Past Drug Use History: Marijuana - Past Family History Brother(s) Family Medical History: Cancer Mother Family Medical History: Cancer General Exam - General Exam Comments Initial Comments: General: Appears in no acute distress. HEAD: Normal with no signs of head trauma. EYES: EOMI. ENT: Hearing grossly intact. RESPIRATORY: No respiratory distress. Clear breath sounds bilaterally. No increased work of breathing. No hypoxia. C/V: Regular rate and rhythm. ABD: Abdomen is nondistended. EXT: Patient has some mild tenderness to palpation over the posterior left calf. Neurovascular intact throughout the left lower extremity. SKIN: Bruising present over the left lower extremity. No erythema or concern for cellulitis at this time. NEURO: Alert and oriented. Limitations: no limitations Course Vital Signs 05/17/24 05/17/24 15:35 17:49 Temperature 99.1 F Pulse Rate 93 90 Respiratory 18 16 Rate Blood Pressure 113/68 132/87 O2 Sat by Pulse 97 99 Oximetry Medical Decision Making - Medical Decision Making Was pt. sent in by a medical professional or institution (, PA, SHOP MECHANIC, urgent care, hospital, or fpc...) When possible be specific @ -No Did you speak to anyone other than the patient for history (EMS, parent, family, police, friend...)? What history was obtained from this source @ -No Did you review nursing and triage notes (agree or disagree)? Why? @ -I reviewed and agree with nursing and triage notes Were old charts reviewed (outside hosp., previous admission, EMS record, old EKG, old radiological studies, urgent care reports/EKG's, fpc records)? Report findings @ -Reviewed x-ray from April 30, 2024. Revealed no obvious significant injury. Differential Diagnosis (chest pain, altered mental status, abdominal pain women, abdominal pain men, vaginal bleeding, weakness, fever, dyspnea, syncope, headache, dizziness, GI bleed, back pain, seizure, CVA, palpatations, mental health, musculoskeletal)? @ -DVT, cellulitis, muscle strain/spasm this list is not all inclusive. EKG interpreted by me (3pts min.). @ -None done X-rays interpreted by me (1pt min.). @ -None done CT interpreted by me (1pt min.). @ -None done U/S interpreted by me (1pt. min.). @ -Ultrasound negative for left lower extremity DVT What testing was considered but not performed or refused? (CT, X-rays, U/S, labs)? Why? @ -None What meds were considered but not given or refused? Why? @ -None Did you discuss the management of the patient with other professionals (professionals i.e. , PA, SHOP MECHANIC, lab, RT, psych nurse, social and political studies professor, restaurant attendant, teacher, commissioned security officer, case maker)? Give summary @ -No Was smoking cessation discussed for >3mins.? @ -No Was critical care preformed (if so, how long)? @ -No Were there social determinants of health that impacted care today? How? (Homelessness, low income, unemployed, alcoholism, drug addiction, transpo rtation, low edu. Level, literacy, decrease access to med. care, shelter, rehab)? @ -No Was there de-escalation of care discussed even if they declined (Discuss DNR or withdrawal of care, Hospice)? DNR status @ -No What co-morbidities impacted this encounter? (DM, HTN, Smoking, COPD, CAD, Cancer, CVA, ARF, Chemo, Hep., AIDS, mental health diagnosis, sleep apnea, morbid obesity)? @ -None Was patient admitted / discharged? Hospital course, mention meds given and route, prescriptions, significant lab abnormalities, going to OR and other pertinent info. @ -Based on the patient's presentation and physical exam, presents emergency department complaining of left calf pain with concern for possible blood clot. Exam is unremarkable. No concern for infection at this time. Does have improving bruises over the left lower extremity which is been present for multiple weeks. We will obtain ultrasound of left lower extremity. Patient declines any analgesia medications as he is chronically on Percocet. Vitals are within acceptable limits.Patient has no respiratory complaints and there is no concern for PE at this time. Ultrasound negative for DVT. I updated the patient. He will be discharged home at this time. Patient can continue analgesia medications at this time. Strict return precautions discussed. I instructed the patient to follow up with their PCP in the next 1-3 days. I ex plained that the patient should return to the emergency department if they experience any worsening symptoms. Strict return precautions were discussed with the patient. The patient expressed understanding of these instructions. I answered all questions that the patient had. The patient was discharged home in good condition with their prescriptions and follow up information. Undiagnosed new problem with uncertain prognosis? @ -No Drug Therapy requiring intensive monitoring for toxicity (Heparin, Nitro, Insulin, Cardizem)? @ -No Were any procedures done? @ -No Diagnosis/symptom? @ -Left lower extremity muscle cramp Acute, or Chronic, or Acute on Chronic? @ -Acute Uncomplicated (without systemic symptoms) or Complicated (systemic symptoms)? @ -Uncomplicated Side effects of treatment? @ -None Exacerbation, Progression, or Severe Exacerbation] @ -No Poses a threat to life or bodily function? @ -Unlikely Disposition Clinical Impression: Muscle cramp Disposition: HOME SELF-CARE Condition: Good Instructions (If sedation given, give patient instructions): Muscle Cramp (ED) Is patient prescribed a controlled substance at d/c from ED?: No Referrals: Joao Cobb DO [Primary Care Provider] - 1-2 days Time of Disposition: 17:44
--- NOTE | 2024-05-17 16:57 | US ---
EXAMINATION TYPE: US venous doppler duplex LE LT DATE OF EXAM: 05/17/2024 4:41 PM COMPARISON: NONE CLINICAL INDICATION: Male, 58 years old with history of eval for dvt; Pain and bruising left leg afte r fall TECHNIQUE: The lower extremity deep venous system is examined utilizing real time linear array sonog gabino with graded compression, color doppler sonography, and spectral doppler. SIDE PERFORMED: Left FINDINGS: VESSELS IMAGED: Common Femoral Vein Deep Femoral Vein Greater Saphenous Vein * Femoral Vein Popliteal Vein Small Saphenous Vein * Proximal Calf Veins (* superficial vessels) Left Leg: Negative for DVT IMPRESSION: 1. Left lower extremity ultrasound negative for deep venous thrombosis. [facility], Workstation: [facility], 05/17/2024 4:55 PM
[2024-05-17 17:51] VITALS: BP 132/87; PULSE 90; RESP 16
== END 2024-05-17 17:50 | disposition home or self-care (01) ==
LOC: EC 15:03
CPT/HCPCS: 99283

== ENCOUNTER → 2024-12-28 | Outpatient (CLI) | payer MEDICARE ==
--- NOTE | 2024-12-28 13:56 | CTL ---
EXAMINATION TYPE: CT Low Dose Lung DATE OF EXAM ORDERED: 12/28/2024 COMPARISON: None CLINICAL INDICATION: Male, 59 years old with history of Z12.2 LUNG CA SCR F17.210 CURRENT SMOKER; [facility] , history of smoking, Lung cancer screening, History of Smoking/tobacco use. TECHNIQUE: Low dose computed tomography scan was performed through the chest at 1 mm thick sections a nd reconstructed images in multiple planes at 1 mm and [address] DLP: [address] CTDI: 2.29 mGy Automated exposure control for dose reduction was used. CT DIAGNOSTIC QUALITY: Satisfactory Findings: There are multiple scattered pulmonary nodules the majority of which are 5 mm or less. There is a 6.4 mm groundglass nodule in the right lower lobe. There is no lung consolidation or abnormal interstitial density. There is no pleural effusion or pneumothorax. The great vessels and heart are normal in size. There is no mediastinal, hilar or axillary adenopathy. Limited scanning through the upper abdomen reveals no gross abnormality. There are no focal osseous lesions. IMPRESSION: 1. Lung RADS category 3, probably benign. Follow-up low-dose CT thorax in 6 months is recommended to confirm stability. 2. No acute cardiopulmonary disease. [facility], , 12/28/2024 1:54 PM
== END | disposition home or self-care (01) ==
LOC: RADCTMAIN 13:09
PROVIDERS: ATTEND Internal Medicine
DX: Z12.2 Encounter for screening for malignant neoplasm of respiratory organs (principal); F17.210 Nicotine dependence, cigarettes, uncomplicated
CPT/HCPCS: 71271